=== PATIENT | female | born 1930 | race Caucasian/White ===

== ENCOUNTER 2016-09-02 11:57 | Inpatient (IN) | payer OTHER ==
[~2016-09-02] VITALS: Ht 152.4 cm; Wt 89.4 kg
[~2016-09-02 11:57] MED LIST: ACET650T92 PO; AMLO5TAB2 PO; ASPCH81X PO; CHOL1TAB46 PO; CLOP1TAB5 PO; DTR5 PO; FLNIN NAE; ISOS60TA PO; ISR/5 PO; LOSA1TAB38 PO; LPR50X PO; LPT/40 PO; MECL1TAB42 PO; NITR0.4S UT; PANT1TAB48 PO; SENNTAB23 PO
[2016-09-02] MEDS ORDERED: SODIUM CHLORIDE 0.9% 1000ML 1,000 ML IV SCH (12:33)
--- NOTE | 2016-09-02 12:55 | DIAGNOSTIC IMAGING REPORT ---
HEAD CT NONCONTRAST CT DOSE: 700.35 mGycm HISTORY: Stroke symptoms. Arm and leg heaviness. TECHNIQUE: Multiaxial CT images of the head were performed without the use of intravenous contrast. Automated exposure control was utilized for this study. Comparison: Head CT 05/11/2015. Findings: The paranasal sinuses and mastoid air cells are clear. The calvarium and skull base are intact. There is no mass, hematoma, midline shift, acute infarct. White matter hypodensity is nonspecific but suggestive of microvascular ischemic change. The ventricles and sulci demonstrate mild age-related involutional changes. 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 Impression: No significant change compared to the prior study. No acute intracranial abnormality. Electronically signed by: Jersey Douglas M.D. 09/02/2016 12:54 PM Dictated Date/Time: 09/02/2016 12:49 PM
[2016-09-02] MEDS ORDERED: HydrALAZINE HCL 20 MG/ML VIAL IV. STA (13:34)
[2016-09-02 14:06] LABS: BASO % 0.4 %; BASO ABS # 0.03 K/uL (0-0.2); COMPLETE YES; EOS % 2.3 %; HEMATOCRIT 35.4 % (37-47); IG% 0.7 %; LYMPH % 21.8 %; LYMPH ABS # 1.63 K/uL (1.2-3.4); MEAN CELL VOLUME 95.7 fL (80-100); MEAN CORPUSCULAR HEMOGLOBIN 31.1 pg (25-34); MEAN CORPUSCULAR HGB CONC 32.5 g/dl (32-36); MEAN PLATELET VOLUME 11.2 fL (7.4-10.4); NEUT % 65.8 %; PLATELET COUNT 186 K/uL (130-400); WHITE BLOOD COUNT 7.46 K/uL (4.8-10.8)
[2016-09-02 14:24] LABS: BUN/CREATININE RATIO 19.6 (10-20); CALCIUM 9.5 mg/dl (8.5-10.1); POTASSIUM 4.4 mmol/L (3.5-5.1)
[2016-09-02 14:27] LABS: INR 1.1 (0.9-1.1); PARTIAL THROMBOPLASTIN RATIO 0.9; PROTHROMBIN TIME (PATIENT) 11.4 SECONDS (9.0-12.0)
[2016-09-02 14:32] LABS: CKMB/CK RATIO 2.1 (0-3.0)
[2016-09-02] MEDS ORDERED: ISOS30TA35 PO (15:38)
[2016-09-02] MEDS ORDERED: ISOS60TA25 PO (15:38)
[2016-09-02] MEDS ORDERED: LOSA1TAB38 PO (15:38)
[2016-09-02] MEDS ORDERED: JNV25 PO (15:38)
[2016-09-02] MEDS ORDERED: ONDANSETRON INJ 2 MG/ML 2 ML VIAL IV PRN (15:45)
[2016-09-02] MEDS ORDERED: PHARMACIST DISCHARGE MED REC CONSULT PRN (15:45)
[2016-09-02] MEDS ORDERED: ACETAMINOPHEN 325 MG TAB PO PRN (15:45)
[2016-09-02] MEDS ORDERED: FERR1TAB13 PO (15:55)
[2016-09-02] MEDS ORDERED: CYAN10004 PO (15:55)
[2016-09-02] MEDS ORDERED: PANT1TAB48 PO (15:55)
[2016-09-02] MEDS ORDERED: AMLO-114 PO (15:55)
[2016-09-02] MEDS ORDERED: DOCU100C22 PO (15:55)
[2016-09-02] MEDS ORDERED: GLUCOSE 10 TABS/TUBE PO PRN (16:00)
[2016-09-02] MEDS ORDERED: GLUCOSE 40% GEL 15 GM TUBE PO PRN (16:00)
[2016-09-02] MEDS ORDERED: GLUCAGON FOR INJ 1 MG VIAL SQ PRN (16:00)
[2016-09-02] MEDS ORDERED: DEXTROSE 50% 50 ML SYR IV PRN (16:00)
[2016-09-02 16:48] VITALS: BP 116/84; PULSE 56; TEMP 36.7; O2SAT 96; Ht 152.4 cm; Wt 89.4 kg
--- NOTE | 2016-09-02 17:29 | DIAGNOSTIC IMAGING REPORT ---
Brain MRA HISTORY: Mental status change Stroke - Attention to [place] TECHNIQUE: 3-D [id number] MRA of the brain was performed without contrast. COMPARISON STUDY: None. FINDINGS: High-grade stenosis distal left vertebral artery. Right vertebral artery is dominant with the basilar unremarkable. Moderate multifocal narrowing of the right middle cerebral arterial distribution. Left middle cerebral distribution appears unremarkable. Anterior cerebral vessels show mild scattered atherosclerotic change. IMPRESSION: 1.. High-grade stenosis distal left vertebral vessel. 2. Moderate multifocal narrowing right middle cerebral vessel. 3. Mild atherosclerotic change anterior cerebral circulation. Electronically signed by: Silver Zuluaga M.D. 09/02/2016 5:27 PM Dictated Date/Time: 09/02/2016 5:24 PM
--- NOTE | 2016-09-02 17:36 | DIAGNOSTIC IMAGING REPORT ---
Brain MRI WITHOUT CONTRAST HISTORY: Mental status change Stroke TECHNIQUE: Multiplanar multisequence MRI of the brain was performed without the use of contrast. COMPARISON STUDY: None. FINDINGS: 3 small foci of acute punctate ischemic change right parietal convexity. No additional foci of acute ischemic change are present. Mild to moderate chronic small vessel change of the periventricular deep white matter regions. Mild age-related atrophy. No deviation of midline structures. IMPRESSION: 1. Several small punctate foci of acute ischemic change right superior parietal convexity. 2. Chronic age-related change. 3. Mild atrophy Electronically signed by: Silver Zuluaga M.D. 09/02/2016 5:35 PM Dictated Date/Time: 09/02/2016 5:32 PM
--- NOTE | 2016-09-02 17:55 | DIAGNOSTIC IMAGING REPORT ---
MRA OF THE NECK WITHOUT CONTRAST CLINICAL HISTORY: CVA mental status change COMPARISON STUDY: None. TECHNIQUE: A 1.5 Tammi magnet was utilized. 2-D and 3-D [id number] imaging was performed to obtain unenhanced MRA of the neck. NASCET criteria were utilized to estimate the degree of carotid stenosis. FINDINGS: The right vertebral artery and basilar appear unremarkable. High-grade stenosis distal left vertebral artery. Moderate multifocal areas of narrowing of the course of the remainder of the left vertebral vessel. Evaluation of the carotid systems is problematic due to patient respiratory and somatic motion. Possible moderate atherosclerotic change carotid bifurcations and proximal internal carotid arteries. This region is not seen diagnostically. IMPRESSION: 1. Near nondiagnostic study. 2. High-grade stenosis distal left vertebral artery with multifocal areas of significant stenosis in a more proximal location. 3. Very limited evaluation of the carotid bifurcations due to patient respiratory and somatic motion. Possible moderate to rather significant narrowing of the internal carotid arteries bilaterally versus artifact. 4. A carotid Doppler ultrasound may be of further assistance to evaluate these findings. Electronically signed by: Silver Zuluaga M.D. 09/02/2016 5:54 PM Dictated Date/Time: 09/02/2016 5:50 PM
[2016-09-02 18:09] VITALS: BP 180/92; PULSE 55; TEMP 36.5; O2SAT 94
--- NOTE | 2016-09-02 18:16 | History and Physical ---
History & Physical Date & Time of Service: Sep 02, 2016 ~ 15:30 Chief Complaint: Left Arm and Leg Weakness Primary Care Physician: Joce Dutta M.D. History of Present Illness 85 year old female who presents to the ER with left arm weakness and heaviness. Patient reports she woke up around 0500 this morning and her left arm was heavy and numb and he was unable to move it. She then got up to go to the bathroom and reports her left leg was dragging however she was able to walk. Patient then went back to bed and woke up around 930 and her symptoms persisted. She then presented to the ER for further evaluation. She reports her symptoms are improving. She feels as though her functions has returned about 80%. She denies headache, blurred vision, lightheadedness, dizziness, or syncope. She reports she otherwise has been feeling well recently. No chest pain or shortness of breath. She denies abdominal pain, nausea, vomiting, or diarrhea. No fever or chills. She denies urinary symptoms. In the ER, head CT is negative. BP was elevated at 190/81. She received IV hydralazine and BP has improved. Trop 0.075 , EKG does not show any acute ST changes. Past Medical/Surgical History Medical Problems: (1) CAD (coronary artery disease) Permanent Comment: 2002 - PTCA to LAD, cx, and RCA 2006 - cath demonstrated patent stents and branch vessel disease, medical management recommended Status: Chronic (2) CKD (chronic kidney disease), stage IV Status: Chronic (3) DM type 2 (diabetes mellitus, type 2) Status: Chronic (4) Dyslipidemia Status: Chronic (5) HTN (hypertension) Status: Chronic (6) Osteoarthritis Status: Chronic Surgical Problems: (1) H/O dilation and curettage Status: Chronic (2) H/O oophorectomy Status: Chronic (3) History of appendectomy Status: Chronic (4) History of cataract surgery Status: Chronic (5) S/P cholecystectomy Status: Chronic Family History non contributory due to patient's advanced age Social History Smoking Status: Former Smoker Alcohol Use: none Immunizations History of Influenza Vaccine: Yes Influenza Vaccine Date: Feb 12, 2016 History of Tetanus Vaccine?: Yes Tetanus Immunization Date: Mar 23, 2011 History of Pneumococcal: Yes Pneumococcal Date: Apr 13, 2015 Multi-Drug Resistant Organisms History of MDRO: No Allergies Coded Allergies: GAYATHRI Inhibitors (Unverified Allergy, Unknown, SWELLING, 09/02/16) Sulfa Antibiotics (Verified Allergy, Unknown, UNKNOWN, 09/02/16) Home Medications Scheduled Amlodipine (Norvasc), 10 MG PO DAILY Aspirin (Aspirin Chewable), 81 MG PO DAILY Atorvastatin (Lipitor), 40 MG PO HS Cholecalciferol (Vitamin D3), 5,000 UNIT(INT) PO HS Clopidogrel Bisulfate (Plavix), 75 MG PO DAILY Cyanocobalamin (Vitamin B-12 1000 Mcg), 1 TAB PO DAILY Docusate Sodium (Docqlace), 2 CAP PO HS Ferrous Sulfate (Kp Ferrous Sulfate), 1 TAB PO BID Isosorbide Mononitrate Ext Rel (Imdur Ext Rel), 1 TAB PO QAM Isosorbide Mononitrate Ext Rel (Imdur Ext Rel), 1 TAB PO QAM Losartan Potassium (Cozaar), 100 MG PO DAILY Meclizine Hcl (Meclizine Hcl), 25 MG PO TID PRN Metoprolol Tartrate (Metoprolol Tartrate), 50 MG PO BID Nitroglycerin (Nitrostat), 0.4 MG UT PRN Oxybutynin Chloride (Oxybutynin Chloride), 5 MG PO BID Pantoprazole (Protonix), 40 MG PO BID Sitagliptin (Januvia), 1 TAB PO DAILY Review of Systems ROS per HPI, all other systems reviewed and negative Physical Exam Vital Signs Date Time Temp Pulse Resp B/P (MAP) Pulse Ox O2 Delivery O2 Flow Rate FiO2 09/02/16 16:48 36.7 56 20 116/84 96 Room Air 09/02/16 16:46 56 20 116/84 96 Room Air 09/02/16 14:15 58 20 164/83 98 09/02/16 14:00 46 16 183/87 95 Room Air 09/02/16 13:25 51 20 183/79 96 Room Air 09/02/16 12:24 98 Room Air 09/02/16 12:22 36.7 71 20 190/81 98 Room Air 09/02/16 12:15 52 General Appearance: no apparent distress Head: normocephalic Eyes: normal inspection, PERRL ENT: hearing grossly normal Neck: supple, no JVD Respiratory/Chest: lungs clear, normal breath sounds, no respiratory distress Cardiovascular: regular rate, rhythm, normal peripheral pulses, + pertinent finding (teace edema BLLE) Abdomen/GI: normal bowel sounds, non tender, soft Extremities/Musculoskelatal: normal inspection, no calf tenderness Neurologic/Psych: alert, normal mood/affect, oriented x 3, + pertinent finding (decreased sensation to LUE and LLE; LUE 4/5, RUE 4/5, LLE 4/5, RLE 5/5; no other focal deficits noted) Skin: normal color, warm/dry Diagnostics Laboratory Results Results Past 24 Hours Test 09/02/16 12:54 09/02/16 12:59 09/02/16 13:30 Range/Units Bedside Glucose 134 70-90 mg/dl Bedside Prothrombin Time INR 1.2 0.9-1.1 White Blood Count 7.46 4.8-10.8 K/uL Red Blood Count 3.70 4.2-5.4 M/uL Hemoglobin 11.5 12.0-16.0 g/dL Hematocrit 35.4 37-47 % Mean Corpuscular Volume 95.7 80-100 fL Mean Corpuscular Hemoglobin 31.1 25-34 pg Mean Corpuscular Hemoglobin Concent 32.5 32-36 g/dl Platelet Count 186 130-400 K/uL Mean Platelet Volume 11.2 7.4-10.4 fL Neutrophils (%) (Auto) 65.8 % Lymphocytes (%) (Auto) 21.8 % Monocytes (%) (Auto) 9.0 % Eosinophils (%) (Auto) 2.3 % Basophils (%) (Auto) 0.4 % Neutrophils # (Auto) 4.91 1.4-6.5 K/uL Lymphocytes # (Auto) 1.63 1.2-3.4 K/uL Monocytes # (Auto) 0.67 0.11-0.59 K/uL Eosinophils # (Auto) 0.17 0-0.5 K/uL Basophils # (Auto) 0.03 0-0.2 K/uL RDW Standard Deviation 47.1 36.4-46.3 fL RDW Coefficient of Variation 13.5 11.5-14.5 % Immature Granulocyte % (Auto) 0.7 % Immature Granulocyte # (Auto) 0.05 0.00-0.02 K/uL Prothrombin Time 11.4 9.0-12.0 SECONDS Prothromb Time International Ratio 1.1 0.9-1.1 Activated Partial Thromboplast Time 23.9 21.0-31.0 SECONDS Partial Thromboplastin Ratio 0.9 Sodium Level 144 136-145 mmol/L Potassium Level 4.4 3.5-5.1 mmol/L Chloride Level 111 98-107 mmol/L Carbon Dioxide Level 23 21-32 mmol/L Anion Gap 10.0 3-11 mmol/L Blood Urea Nitrogen 39 7-18 mg/dl Creatinine 2.00 0.60-1.20 mg/dl Est Creatinine Clear Calc Drug Dose 20.0 ml/min Estimated GFR () 25.6 Estimated GFR (Non- 22.0 BUN/Creatinine Ratio 19.6 10-20 Random Glucose 136 70-99 mg/dl Calcium Level 9.5 8.5-10.1 mg/dl Total Creatine Kinase 77 26-192 U/L Creatine Kinase MB 1.6 0.5-3.6 ng/ml Creatine Kinase MB Ratio 2.1 0-3.0 Troponin I 0.075 0-0.045 ng/ml Diagnostic Radiology Head CT Impression: No significant change compared to the prior study. No acute intracranial abnormality. Impression Assessment and Plan LEFT SIDED WEAKNESS - admit to tele - patient presenting with left arm and left leg weakness that was present when she woke up this morning; symptoms currently improving - head CT negative - brain MRI/MRA, neck MRA, echo - neuro checks - patient already on ASA and Plavix due to CAD - if imaging positive for CVA, will need to consider changing to Aggrenox - on atorvastatin 40mg - will increase to 80mg - neuro consult, input appreciated HYPERTENSIVE URGENCY - BP on arrival 190/81 - s/p IV hydralazine with improvement - continue metoprolol, isosorbide, losartan, and amlodipine - would allow for permissive HTN due to possible CVA ELEVATED TROPONIN, HX CAD - suspect troponin elevation due to HTN - no reports of chest pain, EKG without acute ST changes - continue to cycle cardiac enzymes, check resting echo - continue ASA, Plavix, beta margaret, statin, nitrate DM - hgb a1c 5.9 08/2016 - hold oral agents and utilize SSI while hospitalized DVT PROPHYLAXIS - SCDs until MRI resulted CODE STATUS - Patient is a DNR as per my discussion with her. DISPO - In my clinical judgment this beneficiary meets acute admission criteria, established by [facility], that includes being hospitalized through two midnights. Advanced Directives Existing Living Will: Yes Existing Power of Staff Mechanical Engineer: Yes VTE Prophylaxis VTE Risk Assessment Done? Y/N: Yes Risk Level: Moderate
[2016-09-02 18:50] VITALS: BP 165/75
[2016-09-02] MEDS: PANTOprazole SOD 40 MG TAB PO SCH (20:14)
[2016-09-02] MEDS: ATORVASTATIN 40 MG TAB PO SCH (20:14)
[2016-09-02] MEDS: OXYBUTYNIN CHLORIDE 5 MG TAB PO SCH (20:16)
[2016-09-02] MEDS: DOCUSATE SODIUM 100 MG CAP PO SCH (20:16)
[2016-09-02] MEDS: INSULIN ASPART 100 UNITS/ML 3 ML PEN SC SCH (20:18)
[2016-09-02] MEDS: METOPROLOL TARTRATE 50 MG TAB PO SCH (20:18)
[2016-09-02] MEDS: FERROUS SULFATE 325 MG TAB PO SCH (20:18)
--- NOTE | 2016-09-02 20:24 | EMERGENCY ROOM VISIT NOTE ---
History Report prepared by Aubree: Zackary Renteria Under the Supervision of: Dr. Kd Mabry M.D. First contact with patient: 12:28 Chief Complaint: STROKE SYMPTOMS Stated Complaint: ARM & LEG HEAVINESS Nursing Triage Summary: pt presented to hospital by ALS pt has cardiac hx with 3 stents pt reports going to bed at 0130 "feeling ok, but having chills" pt awoke at 0500 to void and felt heaviness in left arm and shoulder pt was able to move on, out of bed to void and felt heaviness in left leg pt returned to bed and awoke at 0930 with numbness in left arm and left leg difficulty pt has full movement of all extremities History of Present Illness The patient is an 85 year old female who presents to the Emergency Room via ambulance with complaints of intermittent left arm numbness and heaviness upon waking at 0500 this morning. She states that she woke up around 0500 to void when the symptoms came on. The patient says that she was able to get out of bed and void, but she also started to feel heaviness in her left leg. She notes that she returned to bed and awoke around 0930 with the same numbness and heaviness. The patient was then brought here via ambulance around 1030, and in the ambulance she says that heaviness and numbness faded a bit. However, she says that the heaviness and tingling has come back here, but not as strong as it was earlier this morning. She was not given anything in the ambulance. The patient states that her right arm and right leg have felt normal. She has no history of TIA, and has never experienced anything like this before. The patient says that she is being treated by her primary care physician for hypertension, and she took her medications this morning. The patient takes Plavix and baby aspirin. She is diabetic, and has a heart disease history with 3 stents placed. Pt denies LOC, headache, fevers, current chills, diaphoresis, visual changes, neck pain, chest pain, breathing difficulties, nausea, vomiting , abdominal pain, back pain, melena, hematochezia, urinary symptoms, weakness, lymphadenopathy, rash, or other complaints. Source of History: patient, nursing staff Onset: 0500 this morning Position: arm (left) Quality: tingling, numbness, other (heaviness) Timing: intermittent Note: Associated symptoms: Left leg numbness, tingling, heaviness. Review of Systems See HPI for pertinent positives and negatives. A total of ten systems were reviewed and were otherwise negative. Past Medical & Surgical Medical Problems: (1) CAD (coronary artery disease) (2) CKD (chronic kidney disease), stage IV (3) DM type 2 (diabetes mellitus, type 2) (4) Dyslipidemia (5) HTN (hypertension) (6) Osteoarthritis Surgical Problems: (1) H/O dilation and curettage (2) H/O oophorectomy (3) History of appendectomy (4) History of cataract surgery (5) S/P cholecystectomy Family History Cancer Social History Smoking Status: Former Smoker Alcohol Use: none Drug Use: none Marital Status: Housing Status: lives with significant other Occupation Status: retired Current/Historical Medications Scheduled Amlodipine (Norvasc), 10 MG PO DAILY Aspirin (Aspirin Chewable), 81 MG PO DAILY Atorvastatin (Lipitor), 40 MG PO HS Cholecalciferol (Vitamin D3), 5,000 UNIT(INT) PO HS Clopidogrel Bisulfate (Plavix), 75 MG PO DAILY Cyanocobalamin (Vitamin B-12 1000 Mcg), 1 TAB PO DAILY Docusate Sodium (Docqlace), 2 CAP PO HS Ferrous Sulfate (Kp Ferrous Sulfate), 1 TAB PO BID Isosorbide Mononitrate Ext Rel (Imdur Ext Rel), 1 TAB PO QAM Isosorbide Mononitrate Ext Rel (Imdur Ext Rel), 1 TAB PO QAM Losartan Potassium (Cozaar), 100 MG PO DAILY Meclizine Hcl (Meclizine Hcl), 25 MG PO TID PRN Metoprolol Tartrate (Metoprolol Tartrate), 50 MG PO BID Nitroglycerin (Nitrostat), 0.4 MG UT PRN Oxybutynin Chloride (Oxybutynin Chloride), 5 MG PO BID Pantoprazole (Protonix), 40 MG PO BID Sitagliptin (Januvia), 1 TAB PO DAILY Allergies Coded Allergies: GAYATHRI Inhibitors (Unverified Allergy, Unknown, SWELLING, 09/02/16) Sulfa Antibiotics (Verified Allergy, Unknown, UNKNOWN, 09/02/16) Physical Exam Vital Signs Date Time Temp Pulse Resp B/P (MAP) Pulse Ox O2 Delivery O2 Flow Rate FiO2 09/02/16 14:15 58 20 164/83 98 09/02/16 14:00 46 16 183/87 95 Room Air 09/02/16 13:25 51 20 183/79 96 Room Air 09/02/16 12:24 98 Room Air 09/02/16 12:22 36.7 71 20 190/81 98 Room Air 09/02/16 12:15 52 Physical Exam GENERAL: Awake, alert, well appearing, no distress HENT: Normocephalic, atraumatic. TM's normal. Oropharynx unremarkable. EYES: PERRL. EOMI. Normal conjunctiva. Sclera non-icteric. NECK: Supple. No nuchal rigidity. FROM. No JVD or bruit. RESPIRATORY: CTA CARDIAC: Bradycardic heart rate. No murmur. ABDOMEN: Soft, non distended. No tenderness to palpation. No rebound or guarding. No masses. RECTAL: Deferred. MUSCULOSKELETAL: Unremarkable. No edema. No discoloration. Gross motor strength symmetric. NEURO: Cranial nerves 2-12 grossly intact. Normal sensorium. No sensory or motor deficits noted. Speech normal. No pronator drift. SKIN: No rash or jaundice noted. LYMPH: No adenopathy. Medical Decision & Procedures ER Provider Diagnostic Interpretation: CT: Radiology results as stated below per my review and radiologist interpretation HEAD CT NONCONTRAST CT DOSE: 700.35 mGycm HISTORY: Stroke symptoms. Arm and leg heaviness. TECHNIQUE: Multiaxial CT images of the head were performed without the use of intravenous contrast. Automated exposure control was utilized for this study. Comparison: Head CT 05/11/2015. Findings: The paranasal sinuses and mastoid air cells are clear. The calvarium and skull base are intact. There is no mass, hematoma, midline shift, acute infarct. White matter hypodensity is nonspecific but suggestive of microvascular ischemic change. The ventricles and sulci demonstrate mild age-related involutional changes. 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 Impression: No significant change compared to the prior study. No acute intracranial abnormality. Electronically signed by: Jersey Douglas M.D. 09/02/2016 12:54 PM Dictated Date/Time: 09/02/2016 12:49 PM Laboratory Results 09/02/16 13:30 Red Blood Count 3.70, Mean Corpuscular Volume 95.7, Mean Corpuscular Hemoglobin 31.1, Mean Corpuscular Hemoglobin Concent 32.5, Mean Platelet Volume 11.2, Neutrophils (%) (Auto) 65.8, Lymphocytes (%) (Auto) 21.8, Monocytes (%) (Auto) 9.0, Eosinophils (%) (Auto) 2.3, Basophils (%) (Auto) 0.4, Neutrophils # (Auto) 4.91, Lymphocytes # (Auto) 1.63, Monocytes # (Auto) 0.67, Eosinophils # (Auto) 0.17, Basophils # (Auto) 0.03 09/02/16 13:30 Test 09/02/16 12:59 09/02/16 13:30 Bedside Prothrombin Time INR 1.2 (0.9-1.1) White Blood Count 7.46 K/uL (4.8-10.8) Red Blood Count 3.70 M/uL (4.2-5.4) Hemoglobin 11.5 g/dL (12.0-16.0) Hematocrit 35.4 % (37-47) Mean Corpuscular Volume 95.7 fL (80-100) Mean Corpuscular Hemoglobin 31.1 pg (25-34) Mean Corpuscular Hemoglobin Concent 32.5 g/dl (32-36) Platelet Count 186 K/uL (130-400) Mean Platelet Volume 11.2 fL (7.4-10.4) Neutrophils (%) (Auto) 65.8 % Lymphocytes (%) (Auto) 21.8 % Monocytes (%) (Auto) 9.0 % Eosinophils (%) (Auto) 2.3 % Basophils (%) (Auto) 0.4 % Neutrophils # (Auto) 4.91 K/uL (1.4-6.5) Lymphocytes # (Auto) 1.63 K/uL (1.2-3.4) Monocytes # (Auto) 0.67 K/uL (0.11-0.59) Eosinophils # (Auto) 0.17 K/uL (0-0.5) Basophils # (Auto) 0.03 K/uL (0-0.2) RDW Standard Deviation 47.1 fL (36.4-46.3) RDW Coefficient of Variation 13.5 % (11.5-14.5) Immature Granulocyte % (Auto) 0.7 % Immature Granulocyte # (Auto) 0.05 K/uL (0.00-0.02) Prothrombin Time 11.4 SECONDS (9.0-12.0) Prothromb Time International Ratio 1.1 (0.9-1.1) Activated Partial Thromboplast Time 23.9 SECONDS (21.0-31.0) Partial Thromboplastin Ratio 0.9 Anion Gap 10.0 mmol/L (3-11) Est Creatinine Clear Calc Drug Dose 20.0 ml/min Estimated GFR () 25.6 Estimated GFR (Non- 22.0 BUN/Creatinine Ratio 19.6 (10-20) Calcium Level 9.5 mg/dl (8.5-10.1) Total Creatine Kinase 77 U/L (26-192) Laboratory results reviewed by me Medications Administered Medications (Trade) Dose Ordered Sig/Caty Route Start Time Stop Time Status Last Admin Dose Admin Sodium Chloride 1,000 ml @ 50 mls/hr Q20H IV 09/02/16 12:33 09/02/16 19:03 DC 09/02/16 13:24 50 MLS/HR Hydralazine HCl (HydrALAZINE INJ) 5 mg NOW STAT IV. 09/02/16 13:34 09/02/16 13:36 DC 09/02/16 14:07 5 MG ECG Indication: other (stroke symptoms) Rate (beats per minute): 51 Rhythm: sinus bradycardia Findings: no acute ischemic change, left axis deviation, other (RBBB, LVH) ED Course 1229: The patient was evaluated in room C4. A complete history and physical exam was performed. 1233: Ordered NSS 1000 ml @ 50 mls/hr IV. 1320: I discussed the patient with Dr. Loraine Carrero Neurology - he recommends a stroke workup and no TPA. 1334: Ordered Hydralazine Inj 5 mg IV. 1343: I reevaluated and updated the patient. 1500: Upon reexamination, the patient was resting comfortably. I discussed the test results and treatment plan with her. She expressed understanding and agreement with the treatment plan. The patient will be evaluated for further management. 1502: I discussed the patient with Analy Nguyen - she will evaluate the patient for further treatment. Medical Decision Medication Reconciliation: I attest that I have personally reviewed the patient' s current medication list Blood pressure screening: Patient was found to have an elevated blood pressure and was referred to their primary doctor for recheck and further treatment. Triage Nursing notes reviewed. The patient's presentation and history were concerning for left-sided numbness. Etiologies such as TIA, CVA, metabolic, infection, hypo/hyperglycemia, electrolyte abnormalities, cardiac sources, intracerebral event, toxicologic, neurologic, as well as others were entertained. The patient was evaluated. She was moderately hypertensive. Stroke scale was essentially 0. She was sent for urgent CT imaging. This was negative for any acute disease. Old lacunar infarcts noted. The patient had a consultation placed with stroke neurology at [facility]. It was felt that conservative management was most appropriate given the duration of symptoms and the patient' s age. The patient's blood work revealed unremarkable CBC. She had a mild elevation of creatinine but this was stable. Troponin was mildly elevated although this is difficult to interpret in light of her abnormal creatinine. ECG did not reveal any evidence of dysrhythmia. The patient was hydrated. Consultation was made with internal medicine. The patient was evaluated in the Emergency Room for further management. Consults Time Called: 1314 Consulting Physician: Dr. Loraine Carrero neurology Returned Call: 1320 I discussed the patient with Dr. Loraine Carrero Neurology - he recommends a stroke workup and no TPA. Additional Consults: Time Called: 1500 Consulted Physician: Analy Nguyen Returned Call: 1502 Additional Comments: I discussed the patient with Analy Nguyen - she will evaluate the patient for further treatment. Impression Primary Impression: Numbness on left side Additional Impressions: Elevated troponin Hypertension Scribe Attestation The scribe's documentation has been prepared under my direction and personally reviewed by me in its entirety. I confirm that the note above accurately reflects all work, treatment, procedures, and medical decision making performed by me. Departure Information Dispostion Being Evaluated By Hospitalist Prescriptions Pantoprazole (PROTONIX) 40 Mg Tab 40 MG PO BID for 30 Days Prov: Analy Wood .JULIO 09/02/16 Referrals Joce Dutta M.D. (PCP) Patient Instructions My [facility] Problem Qualifiers
[2016-09-02] MEDS ORDERED: ATORVASTATIN 20 MG TAB PO SCH (21:00)
--- NOTE | 2016-09-02 22:01 | DIAGNOSTIC IMAGING REPORT ---
BILATERAL CAROTID DOPPLER STUDY HISTORY: Mental status change CVA COMPARISON: None. TECHNIQUE: Real-time, grayscale, and color Doppler sonography of the carotid arteries was performed. Imaging reviewed in the transverse and longitudinal planes. All measurements were calculated based on NASCET criteria. FINDINGS: Antegrade flow is seen in the bilateral vertebral arteries. The brachial pressures are hemodynamically similar. Moderate plaque formation bilaterally The peak systolic velocity within the right ICA is 77. The right systolic ratio is 0.79. The peak systolic velocity within the left ICA is 132. The left systolic ratio is 3.14. IMPRESSION: 1. Moderate plaque formation bilaterally. 2. 30-40% narrowing left internal carotid artery. 4. No evidence for high-grade stenotic process. Electronically signed by: Silver Zuluaga M.D. 09/02/2016 9:59 PM Dictated Date/Time: 09/02/2016 9:58 PM
[2016-09-02 23:00] VITALS: BP 184/69; PULSE 48; TEMP 36.8; O2SAT 95
[2016-09-02] MEDS: HydrALAZINE HCL 20 MG/ML VIAL IV. PRN (23:09)
[2016-09-03] VITALS (8 sets, daily range): BP systolic 120–182; BP diastolic 60–79; PULSE 54–78; TEMP 36.7–37; O2SAT 91–96
[2016-09-03 04:32] LABS: BASO % 0.1 %; BASO ABS # 0.01 K/uL (0-0.2); COMPLETE YES; EOS % 2.2 %; HEMATOCRIT 33.5 % (37-47); IG% 0.4 %; LYMPH % 26.2 %; LYMPH ABS # 1.87 K/uL (1.2-3.4); MEAN CELL VOLUME 94.4 fL (80-100); MEAN CORPUSCULAR HEMOGLOBIN 30.7 pg (25-34); MEAN CORPUSCULAR HGB CONC 32.5 g/dl (32-36); MEAN PLATELET VOLUME 10.5 fL (7.4-10.4); MONO % 8.6 %; NEUT % 62.5 %; PLATELET COUNT 158 K/uL (130-400); RED BLOOD COUNT 3.55 M/uL (4.2-5.4); WHITE BLOOD COUNT 7.13 K/uL (4.8-10.8)
[2016-09-03 04:51] LABS: BUN/CREATININE RATIO 17.8 (10-20); CALCIUM 9.1 mg/dl (8.5-10.1); CREATININE 2.3 mg/dl (0.60-1.20); MAGNESIUM 1.9 mg/dl (1.8-2.4)
[2016-09-03 05:02] LABS: CHOLESTEROL/HDL RATIO 4.2; THYROID STIMULATING HORMONE 0.577 uIu/ml (0.300-4.500)
[2016-09-03 06:53] LABS: ESTIMATED AVERAGE GLUCOSE 140 mg/dl; HA1C FLAG Normal (Normal)
--- NOTE | 2016-09-03 08:33 | Progress Note ---
Internal Med Progress Note Date of Service: Sep 03, 2016. Provider Documentation: SUBJECTIVE: left arm heaviness , numbness almost resolved finished breakfast , no dysphagia, no problem using utensils stood up , ambulated independently in room , has mild numbness on left leg - mentions its been chronic yesterday -she was dragging her left foot , which has resolved as well denies of feeling dizzy or lightheaded no complain of chest pain or SOB , no palpitation last night pt had episodes of SVT -does not remember having any symptoms at present remains bradycardic HR 60's in tele OBJECTIVE: Vital Signs-as noted below Exam: General-vert pleasant elderly female, no sign of distress, conversing Eyes-sclera non icteric, PERRLA ENT-NAd Neck-no JVD noted Lungs-CTA, no wheeze or rales Heart-regular Abdomen-S1/S2 Extremities-no rash or deformity Neuro-AAO X3, no cr nv palsy , Muscle strength RUE 5/5 ; LUE 4/5 ; RLE 5/5 ; LLE 5/5 Lab data as noted below. ASSESSMENT & PLAN: ACUTE CVA /RT PARIETAL STOKE - patient presented with left arm and left leg weakness that was present as she woke up in morning symptoms currently almost resolved - head CT negative - brain MRI : 1. Several small punctate foci of acute ischemic change right superior parietal convexity. 2. Chronic age-related change. 3. Mild atrophy -MRA BRAIN : 1.. High-grade stenosis distal left vertebral vessel. 2. Moderate multifocal narrowing right middle cerebral vessel. 3. Mild atherosclerotic change anterior cerebral circulation. - - patient already been on ASA and Plavix due to CAD - on atorvastatin dose increased to 80mg for high intensity statin tx per guideline ( goal LDL < 70 ) - Neurology consult requested HIGH GRADE STENOSIS ON LEFT VERTEBRAL VESSEL : Noted in MRA of brain Carotid Doppler ( -more specific test ) IMPRESSION: 1. Moderate plaque formation bilaterally. 2. 30-40% narrowing left internal carotid artery. 4. No evidence for high-grade stenotic process. TACHYBRADY SYMPTOM : noted in Tele ; episodes of SVT HR on 119 at 3: 12 am -pt was asymptomatic later bradycardic HR In low 60's to 50 's AM dose of Lopressor not given due to bradycardia MRI of brain suggestive of possible embolic phenomenon has been of Aspirin /Plavix Cardiology consulted for evaluation HYPERTENSIVE URGENCY - BP on arrival was 190/81 - continue metoprolol, isosorbide, losartan, and amlodipine - would allow for permissive HTN due to possible CVA ELEVATED TROPONIN, HX CAD - suspect troponin elevation due to HTN - no reports of chest pain, EKG without acute ST changes - ordered for Resting ECHO to assess any new wall motion abnormality -Cardiology eval requested - continue ASA, Plavix, beta margaret, statin, nitrate DM - hgb a1c 5.9 08/2016 - hold oral agents and utilize SSI while hospitalized DVT PROPHYLAXIS - ordered for sub q heparin CODE STATUS - Patient is a DNR DISPOSITION PT/OT eval requested to assess gait instability was living at home prior , independent in ADL's Medicine follow up with Dr Pham Cardiology follow up with Dr Lambert Vital Signs: Date Time Temp Pulse Resp B/P (MAP) Pulse Ox O2 Delivery O2 Flow Rate FiO2 09/03/16 07:49 36.9 55 16 182/71 (108) 94 Room Air 09/03/16 04:00 Room Air 09/03/16 03:10 36.9 70 18 137/60 (85) 95 Room Air 09/03/16 00:21 166/69 (101) 09/03/16 00:01 Room Air 09/02/16 23:00 36.8 48 18 184/69 (107) 95 Room Air 09/02/16 20:00 Room Air 09/02/16 18:50 165/75 (105) 09/02/16 18:09 36.5 55 18 180/92 (121) 94 Room Air 09/02/16 16:48 36.7 56 20 116/84 96 Room Air 09/02/16 16:46 56 20 116/84 96 Room Air 09/02/16 14:15 58 20 164/83 98 09/02/16 14:00 46 16 183/87 95 Room Air 09/02/16 13:25 51 20 183/79 96 Room Air 09/02/16 12:24 98 Room Air 09/02/16 12:22 36.7 71 20 190/81 98 Room Air 09/02/16 12:15 52 Lab Results: Results Past 24 Hours Test 09/02/16 12:54 09/02/16 12:59 09/02/16 13:30 09/02/16 19:00 Range/Units Bedside Glucose 134 70-90 mg/dl Bedside Prothrombin Time INR 1.2 0.9-1.1 White Blood Count 7.46 4.8-10.8 K/uL Red Blood Count 3.70 4.2-5.4 M/uL Hemoglobin 11.5 12.0-16.0 g/dL Hematocrit 35.4 37-47 % Mean Corpuscular Volume 95.7 80-100 fL Mean Corpuscular Hemoglobin 31.1 25-34 pg Mean Corpuscular Hemoglobin Concent 32.5 32-36 g/dl Platelet Count 186 130-400 K/uL Mean Platelet Volume 11.2 7.4-10.4 fL Neutrophils (%) (Auto) 65.8 % Lymphocytes (%) (Auto) 21.8 % Monocytes (%) (Auto) 9.0 % Eosinophils (%) (Auto) 2.3 % Basophils (%) (Auto) 0.4 % Neutrophils # (Auto) 4.91 1.4-6.5 K/uL Lymphocytes # (Auto) 1.63 1.2-3.4 K/uL Monocytes # (Auto) 0.67 0.11-0.59 K/uL Eosinophils # (Auto) 0.17 0-0.5 K/uL Basophils # (Auto) 0.03 0-0.2 K/uL RDW Standard Deviation 47.1 36.4-46.3 fL RDW Coefficient of Variation 13.5 11.5-14.5 % Immature Granulocyte % (Auto) 0.7 % Immature Granulocyte # (Auto) 0.05 0.00-0.02 K/uL Prothrombin Time 11.4 9.0-12.0 SECONDS Prothromb Time International Ratio 1.1 0.9-1.1 Activated Partial Thromboplast Time 23.9 21.0-31.0 SECONDS Partial Thromboplastin Ratio 0.9 Sodium Level 144 136-145 mmol/L Potassium Level 4.4 3.5-5.1 mmol/L Chloride Level 111 98-107 mmol/L Carbon Dioxide Level 23 21-32 mmol/L Anion Gap 10.0 3-11 mmol/L Blood Urea Nitrogen 39 7-18 mg/dl Creatinine 2.00 0.60-1.20 mg/dl Est Creatinine Clear Calc Drug Dose 20.0 ml/min Estimated GFR () 25.6 Estimated GFR (Non- 22.0 BUN/Creatinine Ratio 19.6 10-20 Random Glucose 136 70-99 mg/dl Estimated Average Glucose 140 mg/dl Hemoglobin A1c 6.5 4.5-5.6 % Calcium Level 9.5 8.5-10.1 mg/dl Total Creatine Kinase 77 26-192 U/L Creatine Kinase MB 1.6 0.5-3.6 ng/ml Creatine Kinase MB Ratio 2.1 0-3.0 Troponin I 0.075 0-0.045 ng/ml Test 09/02/16 19:07 09/02/16 20:12 09/03/16 00:47 09/03/16 04:23 Range/Units Creatine Kinase MB 1.9 2.6 0.5-3.6 ng/ml Troponin I 0.067 0.073 0-0.045 ng/ml Bedside Glucose 103 70-90 mg/dl Creatine Kinase MB Ratio 0-3.0 White Blood Count 7.13 4.8-10.8 K/uL Red Blood Count 3.55 4.2-5.4 M/uL Hemoglobin 10.9 12.0-16.0 g/dL Hematocrit 33.5 37-47 % Mean Corpuscular Volume 94.4 80-100 fL Mean Corpuscular Hemoglobin 30.7 25-34 pg Mean Corpuscular Hemoglobin Concent 32.5 32-36 g/dl Platelet Count 158 130-400 K/uL Mean Platelet Volume 10.5 7.4-10.4 fL Neutrophils (%) (Auto) 62.5 % Lymphocytes (%) (Auto) 26.2 % Monocytes (%) (Auto) 8.6 % Eosinophils (%) (Auto) 2.2 % Basophils (%) (Auto) 0.1 % Neutrophils # (Auto) 4.45 1.4-6.5 K/uL Lymphocytes # (Auto) 1.87 1.2-3.4 K/uL Monocytes # (Auto) 0.61 0.11-0.59 K/uL Eosinophils # (Auto) 0.16 0-0.5 K/uL Basophils # (Auto) 0.01 0-0.2 K/uL RDW Standard Deviation 46.4 36.4-46.3 fL RDW Coefficient of Variation 13.4 11.5-14.5 % Immature Granulocyte % (Auto) 0.4 % Immature Granulocyte # (Auto) 0.03 0.00-0.02 K/uL Sodium Level 145 136-145 mmol/L Potassium Level 4.0 3.5-5.1 mmol/L Chloride Level 113 98-107 mmol/L Carbon Dioxide Level 25 21-32 mmol/L Anion Gap 7.0 3-11 mmol/L Blood Urea Nitrogen 41 7-18 mg/dl Creatinine 2.30 0.60-1.20 mg/dl Est Creatinine Clear Calc Drug Dose 17.4 ml/min Estimated GFR () 21.6 Estimated GFR (Non- 18.6 BUN/Creatinine Ratio 17.8 10-20 Random Glucose 103 70-99 mg/dl Calcium Level 9.1 8.5-10.1 mg/dl Magnesium Level 1.9 1.8-2.4 mg/dl Triglycerides Level 324 0-150 mg/dl Cholesterol Level 138 0-200 mg/dl HDL Cholesterol 33 mg/dl LDL Cholesterol, Calculated 40 mg/dl VLDL Cholesterol, Calculated 65 mg/dl Cholesterol/HDL Ratio 4.2 Thyroid Stimulating Hormone (TSH) 0.577 0.300-4.500 uIu/ml Test 09/03/16 06:57 Range/Units Bedside Glucose 108 70-90 mg/dl
[2016-09-03] MEDS: PANTOprazole SOD 40 MG TAB PO SCH ×2 (08:38→21:06)
[2016-09-03] MEDS: ASPIRIN 81 MG ECTAB PO SCH (08:39)
[2016-09-03] MEDS: OXYBUTYNIN CHLORIDE 5 MG TAB PO SCH ×2 (08:39→21:06)
[2016-09-03] MEDS: METOPROLOL TARTRATE 50 MG TAB PO SCH ×2 (08:40→21:06)
[2016-09-03] MEDS: LOSARTAN POTASSIUM 50 MG TAB PO SCH (08:40)
[2016-09-03] MEDS: CYANOCOBALAMIN 500 MCG TAB (VIT B-12) PO SCH (08:40)
[2016-09-03] MEDS: CLOPIDOGREL BISULFATE 75 MG TAB PO SCH (08:41)
[2016-09-03] MEDS: ISOSORBIDE MONONITRATE 30 MG TABCR PO SCH (08:41)
[2016-09-03] MEDS: AMLODIPINE BESYLATE 5 MG TAB PO SCH (08:41)
[2016-09-03] MEDS: INSULIN ASPART 100 UNITS/ML 3 ML PEN SC SCH ×4 (08:51→21:00)
[2016-09-03] MEDS: FERROUS SULFATE 325 MG TAB PO SCH ×3 (08:52→21:05)
[2016-09-03] MEDS ORDERED: ISOSORBIDE MONONITRATE 60 MG TABCR PO SCH (09:00)
[2016-09-03] MEDS ORDERED: ASPIRIN 81 MG ECTAB PO SCH (09:00)
--- NOTE | 2016-09-03 11:46 | Cardiology Consultation ---
Cardiology Consultation Date of Consultation: Sep 03, 2016 History of Present Illness Almas Dawn is a 85 year old female seen in cardiology consultation per the request of Dr. Coronado for evaluation of SVT. The patient presented to the emergency department yesterday 09/02/16 with complaint of left arm weakness and heaviness that was noted when she got up at 5 AM in the morning. She also noted difficulty with her left leg. Her symptoms persisted and she therefore came to the emergency department for evaluation. By the time she was admitted she felt that her function is improved by 80%. On admission her blood pressure is elevated at 190/81 and she had a mild elevation in her troponin without any significant repolarization changes on EKG. Imaging studies thus far have revealed several small punctate foci of acute ischemic changes in the right superior parietal region. MRA revealed high- grade stenosis within the distal left vertebral artery and a moderate multifocal narrowing of the right cerebral artery. Mild atherosclerotic changes are noted in the anterior cerebellar circulation. Carotid duplex revealed moderate carotid plaque without significant stenosis. Telemetry at present reveals sinus bradycardia at 55 bpm. She is sitting upright at the site for bed enjoying her lunch meal. She feels well and feels that her left arm and left leg weakness is mostly improved but she does note some residual weakness. Telemetry review reveals that on 09/03/16 at 3:12 AM there was a 4 beat run of narrow complex tachycardia 120 bpm that appeared to be consistent with supraventricular tachycardia with spontaneous offset back to sinus rhythm. No significant bradycardia below 50 bpm was noted per my review. The patient remains a symptomatically from an arrhythmia standpoint. The patient is well known to the undersigned with last outpatient visit with me on 04/04/16. At that time she was feeling well and she denied any chest discomfort or shortness of breath and had no recent anginal symptoms. She has a long-standing history of ischemic heart disease. Her 10 years ago she was found to have multivessel coronary artery disease and received pertains coronary intervention to the LAD, circumflex, and right coronary arteries. Her last coronary angiography was performed in 2006 which time her stents were patent with branch vessel disease noted for which ongoing medication therapy was recommended including amlodipine and isosorbide mononitrate. She had a non- ischemic response to pharmacologic nuclear stress testing in August 2015. Her baseline beta margaret doses of metoprolol tartrate 50 mg twice a day as per my last note. She has been on chronic dual antiplatelet therapy with aspirin 81 mg by mouth daily and clopidogrel 75 mg daily due to her multivessel CAD. Outpatient echocardiogram performed 09/09/15 at [facility] revealed normal left ventricular chamber size with mild concentric left ventricular hypertrophy. Resting wall motion was normal. Calculated left ventricular ejection fraction was 60%. Moderate left atrial dilatation was noted as well as borderline pulmonary hypertension with calculated pulmonary artery systolic pressure of 36 mmHg. Grade 1 diastolic dysfunction was noted. History Past Medical History: 1. Chronic coronary heart disease with drug-eluting stents to the LAD, circumflex, and right coronary arteries in January 2003 2. Carotid artery plaque without significant stenosis 3. Hypertension 4. Type 2 diabetes mellitus 5. Hypertension Past Surgical History: Cardiac catheterization 2002 in 2006 Remote appendectomy 1961 Remote cholecystectomy 1961 Social History: Patient is . She is a former smoker having quit in 1991 having smoked 0.75 packs per day for 45 years prior to that. Family History: Family history is notable for ischemic heart disease in her mother who at the age of 94. There is also family history of type 2 diabetes mellitus , renal cell carcinoma, rest cancer, colon cancer per her outpatient chart. Review Of Systems See above for pertinent positives & negatives. A total of 10 systems reviewed and were otherwise negative. Allergies Coded Allergies: GAYATHRI Inhibitors (Unverified Allergy, Unknown, SWELLING, 09/02/16) Sulfa Antibiotics (Verified Allergy, Unknown, UNKNOWN, 09/02/16) Medications Reported Home Medications Medications Dose Route/Sig Max Daily Dose Days Date Category Docqlace (Docusate Sodium) 100 Mg Cap 2 Cap PO HS 09/02/16 Reported Kp Ferrous Sulfate (Ferrous Sulfate) 325 Mg Tab 1 Tab PO BID 30 09/02/16 Reported Vitamin B-12 1000 Mcg (Cyanocobalamin) 1,000 Mcg Tab 1 Tab PO DAILY 30 09/02/16 Reported Norvasc (Amlodipine Besylate) 10 Mg Tab 10 Mg PO DAILY 09/02/16 Reported Protonix (Pantoprazole) 40 Mg Tab 40 Mg PO BID 30 09/02/16 Rx Januvia (Sitagliptin) 25 Mg Tab 1 Tab PO DAILY 09/02/16 Reported Cozaar (Losartan Potassium) 100 Mg Tab 100 Mg PO DAILY 09/02/16 Reported Imdur Ext Rel (Isosorbide Mononitrate) 60 Mg Ertab 1 Tab PO QAM 09/02/16 Reported Imdur Ext Rel (Isosorbide Mononitrate) 30 Mg Tabcr 1 Tab PO QAM 09/02/16 Reported Oxybutynin Chloride 5 Mg Tab 5 Mg PO BID 05/11/15 Reported Metoprolol Tartrate 50 Mg Tab 50 Mg PO BID 05/11/15 Reported Meclizine Hcl 25 Mg Tab 25 Mg PO TID PRN 05/08/12 Reported Vitamin D3 (Cholecalciferol) 5,000 Unit Tab 5,000 Unit(Int) PO HS 05/08/12 Reported Nitrostat (Nitroglycerin) 0.4 Mg Sub 0.4 Mg UT PRN 05/08/12 Reported Lipitor (Atorvastatin) 40 Mg Tab 40 Mg PO HS 05/08/12 Reported Aspirin Chewable (Aspirin) 81 Mg Chew 81 Mg PO DAILY 05/08/12 Reported Plavix (Clopidogrel Bisulfate) 75 Mg Tab 75 Mg PO DAILY 05/08/12 Reported Physical Exam Vital Signs (Last 8hrs): Last 8 Hrs Date Time Temp Pulse Resp B/P (MAP) Pulse Ox O2 Delivery O2 Flow Rate FiO2 09/03/16 08:50 78 09/03/16 07:49 36.9 55 16 182/71 (108) 94 Room Air 09/03/16 04:00 Room Air General Appearance: Alert and Oriented x3. NAD. Head: Normocephalic Atraumatic. Eyes: PERRLA, EOMI, conjunctiva and sclera clear Neck: Supple. No carotid bruits noted. No JVD. No HJD. Respiratory: Breath sounds clear to auscultation bilaterally. No w/r/r. Cardiovascular: Reg rate and rhythm. S1 and S2 noted. No murmurs, rubs, gallops. PMI non displace. Abdomen: Normal bowel sounds, soft nontender. no abdominal bruits. Extremities: No edema, no clubbing or cyanosis. distal pulses 2/4 bilaterally. Neuro: No focal deficits. Psychiatric: Normal affect. Data Last 24 Hours Test 09/02/16 12:54 09/02/16 12:59 09/02/16 13:30 09/02/16 19:00 Bedside Glucose 134 mg/dl Bedside Prothrombin Time INR 1.2 White Blood Count 7.46 K/uL Red Blood Count 3.70 M/uL Hemoglobin 11.5 g/dL Hematocrit 35.4 % Mean Corpuscular Volume 95.7 fL Mean Corpuscular Hemoglobin 31.1 pg Mean Corpuscular Hemoglobin Concent 32.5 g/dl Platelet Count 186 K/uL Mean Platelet Volume 11.2 fL Neutrophils (%) (Auto) 65.8 % Lymphocytes (%) (Auto) 21.8 % Monocytes (%) (Auto) 9.0 % Eosinophils (%) (Auto) 2.3 % Basophils (%) (Auto) 0.4 % Neutrophils # (Auto) 4.91 K/uL Lymphocytes # (Auto) 1.63 K/uL Monocytes # (Auto) 0.67 K/uL Eosinophils # (Auto) 0.17 K/uL Basophils # (Auto) 0.03 K/uL RDW Standard Deviation 47.1 fL RDW Coefficient of Variation 13.5 % Immature Granulocyte % (Auto) 0.7 % Immature Granulocyte # (Auto) 0.05 K/uL Prothrombin Time 11.4 SECONDS Prothromb Time International Ratio 1.1 Activated Partial Thromboplast Time 23.9 SECONDS Partial Thromboplastin Ratio 0.9 Sodium Level 144 mmol/L Potassium Level 4.4 mmol/L Chloride Level 111 mmol/L Carbon Dioxide Level 23 mmol/L Anion Gap 10.0 mmol/L Blood Urea Nitrogen 39 mg/dl Creatinine 2.00 mg/dl Est Creatinine Clear Calc Drug Dose 20.0 ml/min Estimated GFR () 25.6 Estimated GFR (Non- 22.0 BUN/Creatinine Ratio 19.6 Random Glucose 136 mg/dl Estimated Average Glucose 140 mg/dl Hemoglobin A1c 6.5 % Calcium Level 9.5 mg/dl Total Creatine Kinase 77 U/L Creatine Kinase MB 1.6 ng/ml Creatine Kinase MB Ratio 2.1 Troponin I 0.075 ng/ml Test 09/02/16 19:07 09/02/16 20:12 09/03/16 00:47 09/03/16 04:23 Creatine Kinase MB 1.9 ng/ml 2.6 ng/ml Troponin I 0.067 ng/ml 0.073 ng/ml Bedside Glucose 103 mg/dl Creatine Kinase MB Ratio White Blood Count 7.13 K/uL Red Blood Count 3.55 M/uL Hemoglobin 10.9 g/dL Hematocrit 33.5 % Mean Corpuscular Volume 94.4 fL Mean Corpuscular Hemoglobin 30.7 pg Mean Corpuscular Hemoglobin Concent 32.5 g/dl Platelet Count 158 K/uL Mean Platelet Volume 10.5 fL Neutrophils (%) (Auto) 62.5 % Lymphocytes (%) (Auto) 26.2 % Monocytes (%) (Auto) 8.6 % Eosinophils (%) (Auto) 2.2 % Basophils (%) (Auto) 0.1 % Neutrophils # (Auto) 4.45 K/uL Lymphocytes # (Auto) 1.87 K/uL Monocytes # (Auto) 0.61 K/uL Eosinophils # (Auto) 0.16 K/uL Basophils # (Auto) 0.01 K/uL RDW Standard Deviation 46.4 fL RDW Coefficient of Variation 13.4 % Immature Granulocyte % (Auto) 0.4 % Immature Granulocyte # (Auto) 0.03 K/uL Sodium Level 145 mmol/L Potassium Level 4.0 mmol/L Chloride Level 113 mmol/L Carbon Dioxide Level 25 mmol/L Anion Gap 7.0 mmol/L Blood Urea Nitrogen 41 mg/dl Creatinine 2.30 mg/dl Est Creatinine Clear Calc Drug Dose 17.4 ml/min Estimated GFR () 21.6 Estimated GFR (Non- 18.6 BUN/Creatinine Ratio 17.8 Random Glucose 103 mg/dl Calcium Level 9.1 mg/dl Magnesium Level 1.9 mg/dl Triglycerides Level 324 mg/dl Cholesterol Level 138 mg/dl HDL Cholesterol 33 mg/dl LDL Cholesterol, Calculated 40 mg/dl VLDL Cholesterol, Calculated 65 mg/dl Cholesterol/HDL Ratio 4.2 Thyroid Stimulating Hormone (TSH) 0.577 uIu/ml Test 09/03/16 06:57 Bedside Glucose 108 mg/dl Imaging: Imaging summarized in history of present illness EKG performed 09/02/16 at 12:10 PM revealed sinus bradycardia with sinus arrhythmia and right bundle branch block morphology. Telemetry reviewed: As noted above Assessment & Plan Impression: 65-year-old female 1. Presented with left upper, left lower extremity weakness, findings suggestive of right superior parietal stroke with findings of moderate multifocal narrowing of the right ulcer per artery and high-grade stenosis of the distal left vertebral artery. 2. Asymptomatic paroxysmal supraventricular tachycardia, no evidence of atrial fibrillation on telemetry 3. Stable sinus bradycardia otherwise. 4. Chronic ischemic heart disease, history of multivessel PCI with drug- eluting stents to LAD circumflex and RCA dating back to 2002. Branch vessel disease noted in 2006 with patent stents. Discussion/recommendations: Patient has been on chronic dual antiplatelet therapy with aspirin 81 mg daily and clopidogrel 75 mg daily due to her multivessel CAD, stents. Agree with plan to increase her dose of aspirin 162 mg daily, no definite indication for anticoagulation at the present time. Given the imaging findings , it may be difficult to prevent further stroke episodes with medication therapy with therapy change in her antiplatelet therapy or anticoagulation. Agree with increasing her atorvastatin 40 mg daily to 80 mg daily. At this time, she is symptomatically from SVC standpoint and I would continue her chronic dose of metoprolol tartrate 50 mg twice a day. Her blood pressure is elevated. Okay to have some degree of permissive hypertension, but should continue her current home dose of metoprolol, amlodipine, Imdur, and losartan. Agree with when necessary hydralazine. Likely proceed with outpatient seven-day nca certified concierge to definitively exclude any underlying atrial fibrillation and to assess for further SVT events. Jone Lambert, DO
--- NOTE | 2016-09-03 11:55 | NEUROLOGY CONSULTATION ---
DATE OF CONSULTATION: 09/03/2016 PRIMARY CARE PROVIDER: Joce Dutta MD REASON FOR CONSULTATION: Stroke. HISTORY OF PRESENT ILLNESS: An 85-year-old right-handed female with coronary artery disease, chronic kidney disease, diabetes, dyslipidemia, hypertension, woke up in the morning of admission with left arm and leg feeling heavy with some difficulty with walking. She went back to bed and woke up later, symptoms have persisted, but have improved markedly over the day. There was no accompanying headache, change in vision, vertigo, or numbness in the face, arm or leg. There was no chest pain, palpitation, or shortness of breath. She has not had any fevers, chills, sweats, or weight loss. There had not been any head or neck injury, chiropractic manipulation, medical or dental procedures. She has been compliant with her medications. She is modestly hypertensive in the Emergency Room. Her CT of the head was nonrevealing. MRI of the brain, which I have reviewed, shows several small punctate foci of acute ischemic change in the right superior parietal convexities, which is very consistent with the potential embolic source. MRA of the head showed high grade stenosis of the distal left third, moderate multifocal narrowing of the right middle cerebral artery and mild atherosclerotic changes in the anterior circulation. MRA of the neck was nearly nondiagnostic. There was a suggestion that the internal carotids were narrowed versus artifact, high grade stenosis in th 2. High-grade stenosis distal left vertebral artery with multifocal areas of significant stenosis in a more proximal location. with multifocal areas just more proximally. However, again the carotid ultrasound did show no high-grade stenosis. There is a 30% or 40% left internal carotid stenosis, but no high-grade stenosis. Her EKG on admission showed a sinus bradycardia with sinus arrhythmia. She had some SVT after her metoprolol was held. LABORATORY DATA: White count 7.1, H&H 10/33.5, and platelet count 158. PT 11.4 and PTT 23.9. Chemistry: Blood sugar on admission 134. Sodium 144, potassium 4.1, BUN and creatinine 39/2, and glucose 136. Troponin positive. The patient indicates that she lives with another person. Ambulates without assistive device. She did have a fall on a curb about a year ago and an unfamiliar location. She denies any numbness and tingling in the feet. PHYSICAL EXAMINATION: VITAL SIGNS: Temperature 36.5, pulse 78, respiratory rate 16, blood pressure 182/71, and oxygen saturation 94%. GENERAL: Awake, alert, and oriented x3. No right/left confusion. There is no aphasia. Normal visual spatial relationships. HEART: No carotid bruits. No heart murmurs. Heart is regular rate and rhythm. NEUROLOGIC: Pupils equal. Optic nerves unremarkable. Visuals lizarraga without visual extinction. Normal motility. Facial symmetry. There is mild flattening of the left nasal labial fold. Normal facial sensation. Speech is nondysarthric. Motor: Left upper extremity is about 4/5 with a mild left drift and decreased left rapid alternating movements. Left lower extremity is nearly full. [id number] is mildly clumsy on the left. [id number] is normal. Sensation is intact to light touch and temperature. Vibration is symmetric and present at the toes. Reflexes are symmetric. Toes are downgoing. Gait is fairly unremarkable with a walker. IMPRESSION: Patchy right MCA infarction, suggestive of embolism, although no clear embolic source has been found today. PLAN: Echocardiography. CardioNet monitor as an outpatient. She could have artery to artery embolism from the moderate right MCA stenosis as well. At current, we have elected to continue on Plavix as cardiology thinks there is ongoing benefit. We will increase her aspirin dose to 162 mg daily. Gradually control her blood pressure. Her lipids and diabetes appear well controlled. Again, she will wear CardioNet as an outpatient to rule out occult atrial fibrillation. NELSON
--- NOTE | 2016-09-03 14:15 | ECHOCARDIOGRAM REPORT ---
*NOTICE TO RECEIVING LIBERTARIAN AGENCY This information is strictly Confidential and protected under [place] law. [place] law prohibits you from making any further disclosure of this information unless further disclosure is expressly permitted by the written consent of the person to whom it pertains or is authorized by law. A general authorization for the release of medical or other information is not sufficient for this purpose. Hospital accepts no responsibility if the information is made available to any other person, INCLUDING THE PATIENT. Interpretation Summary * Name: JOANA GARCÍA Study Date: 09/03/2016 07:37 AM BP: 137/60 mmHg * Patient Location: .2E\S\E207\S\1 HR: 53 * : 1930 (M/d/yyyy) Gender: Female Height: 60 in * Age: 85 yrs Ethnicity: CA Weight: 196 lb * Ordering Physician: Analy Wood * Referring Physician: Self, Referred * Performed By: Nuris Pina RCS * * Reason For Study: CVA * BSA: 1.9 m2 * The study was technically adequate. * -- Conclusions -- * Sinus bradycardia at 55 bpm was present during the echocardiogram evaluation. * There is mild concentric left ventricular hypertrophy. * The left ventricular wall motion is normal. * Ejection Fraction = 60-65%. * There is mild mitral regurgitation. * Grade I diastolic dysfunction, (abnormal relaxation pattern). Procedure Details * A complete two-dimensional transthoracic echocardiogram was performed (2D, M-mode, Doppler and color flow Doppler). Left Ventricle * The left ventricle is normal in size. * There is mild concentric left ventricular hypertrophy. * Left ventricular systolic function is normal. * Ejection Fraction = 60-65%. * The left ventricular wall motion is normal. Right Ventricle * The right ventricle is normal size. * The right ventricular systolic function is normal as assessed by tricuspid annular plane systolic excursion (TAPSE) (normal >1.5 cm). Atria * The left atrial size is normal. * Right atrial size is normal. * There is no evidence of atrial septal defect, but resolution does not allow assessment for a patent foramen ovale. Mitral Valve * The mitral valve is normal. * There is no mitral valve stenosis. * There is mild mitral regurgitation. Tricuspid Valve * The tricuspid valve is normal. * There is no tricuspid stenosis. * Significant tricuspid regurgitation is absent. Aortic Valve * The aortic valve is trileaflet. * Aortic stenosis is absent. * There is no significant aortic regurgitation. Pulmonic Valve * The pulmonary valve is not well seen, but the Doppler examination is normal without significant regurgitation or stenosis. Great Vessels * The aortic root and proximal ascending aorta are normal sized. Pericardium/Pleural * There is no pericardial effusion. Great Vessels * Normal inferior vena cava diameter and respiratory variation suggests normal central venous pressure. Left Ventricular Diastolic Function * Grade I diastolic dysfunction, (abnormal relaxation pattern). MMode 2D Measurements and Calculations IVSd 1.3 cm IVSs 2.2 cm LVIDd 5.5 cm LVIDs 3.2 cm LVPWd 1.4 cm LVPWs 1.6 cm IVS/LVPW 0.98 FS 42.4 % EDV(Teich) 150.3 ml ESV(Teich) 40.7 ml EF(Teich) 72.9 % EDV(cubed) 170.6 ml ESV(cubed) 32.6 ml EF(cubed) 80.9 % % IVS thick 68.6 % % LVPW thick 16.0 % LV mass(C)d 323.2 grams LV mass(C)dI 174.6 grams/m\S\2 LV mass(C)s 260.4 grams LV mass(C)sI 140.7 grams/m\S\2 SV(Teich) 109.6 ml SI(Teich) 59.2 ml/m\S\2 SV(cubed) 138.1 ml SI(cubed) 74.6 ml/m\S\2 Ao root diam 3.2 cm Ao root area 7.9 cm\S\2 ACS 1.9 cm LA dimension 3.7 cm LA/Ao 1.2 LVOT diam 2.0 cm LVOT area 3.2 cm\S\2 LVAd ap4 33.3 cm\S\2 LVLd ap4 8.0 cm EDV(MOD-sp4) 114.5 ml EDV(sp4-el) 118.3 ml LVAs ap4 21.6 cm\S\2 LVLs ap4 6.4 cm ESV(MOD-sp4) 59.5 ml ESV(sp4-el) 61.4 ml EF(MOD-sp4) 48.0 % EF(sp4-el) 48.1 % LVAd ap2 30.8 cm\S\2 LVLd ap2 7.8 cm EDV(MOD-sp2) 103.0 ml EDV(sp2-el) 103.5 ml LVAs ap2 19.5 cm\S\2 LVLs ap2 6.6 cm ESV(MOD-sp2) 50.1 ml ESV(sp2-el) 49.2 ml EF(MOD-sp2) 51.4 % EF(sp2-el) 52.4 % LVLd %diff -2.66 % EDV(MOD-bp) 109.1 ml LVLs %diff 1.8 % ESV(MOD-bp) 54.3 ml EF(MOD-bp) 50.3 % SV(MOD-sp4) 55.0 ml SI(MOD-sp4) 29.7 ml/m\S\2 SV(MOD-sp2) 52.9 ml SI(MOD-sp2) 28.6 ml/m\S\2 SV(MOD-bp) 54.8 ml SI(MOD-bp) 29.6 ml/m\S\2 SV(sp4-el) 56.8 ml SI(sp4-el) 30.7 ml/m\S\2 SV(sp2-el) 54.3 ml SI(sp2-el) 29.3 ml/m\S\2 Doppler Measurements and Calculations MV E max joey 70.6 cm/sec MV A max joey 138.0 cm/sec MV E/A 0.51 MV P1/2t max joey 96.5 cm/sec MV P1/2t 116.7 msec MVA(P1/2t) 1.9 cm\S\2 MV dec slope 242.3 cm/sec\S\2 MV dec time 0.48 sec Ao V2 max 163.3 cm/sec Ao max PG 10.7 mmHg Ao max PG (full) 5.3 mmHg GUERITA(V,A) 2.2 cm\S\2 GUERITA(V,D) 2.2 cm\S\2 LV V1 max PG 5.3 mmHg LV V1 max 115.4 cm/sec MR max joey 612.9 cm/sec MR max PG 150.3 mmHg PA V2 max 108.3 cm/sec PA max PG 4.7 mmHg TR max joey 265.2 cm/sec
[2016-09-03] MEDS: DOCUSATE SODIUM 100 MG CAP PO SCH (21:04)
[2016-09-03] MEDS: ATORVASTATIN 40 MG TAB PO SCH (21:05)
[2016-09-04] VITALS (7 sets, daily range): BP systolic 92–212; BP diastolic 45–97; PULSE 56–67; TEMP 36.8–37; O2SAT 93–95
[2016-09-04] MEDS: HydrALAZINE HCL 20 MG/ML VIAL IV. PRN (03:59)
[2016-09-04 06:38] LABS: BUN/CREATININE RATIO 20.1 (10-20); POTASSIUM 3.9 mmol/L (3.5-5.1)
[2016-09-04 07:18] LABS: CALCIUM 9.2 mg/dl (8.5-10.1)
[2016-09-04] MEDS: ASPIRIN 81 MG ECTAB PO SCH (08:17)
[2016-09-04] MEDS: ISOSORBIDE MONONITRATE 30 MG TABCR PO SCH (08:18)
[2016-09-04] MEDS: AMLODIPINE BESYLATE 5 MG TAB PO SCH (08:18)
[2016-09-04] MEDS: PANTOprazole SOD 40 MG TAB PO SCH (08:18)
[2016-09-04] MEDS: OXYBUTYNIN CHLORIDE 5 MG TAB PO SCH (08:19)
[2016-09-04] MEDS: CYANOCOBALAMIN 500 MCG TAB (VIT B-12) PO SCH (08:19)
[2016-09-04] MEDS: CLOPIDOGREL BISULFATE 75 MG TAB PO SCH (08:19)
[2016-09-04] MEDS: FERROUS SULFATE 325 MG TAB PO SCH (08:20)
[2016-09-04] MEDS: METOPROLOL TARTRATE 50 MG TAB PO SCH (08:20)
[2016-09-04] MEDS: LOSARTAN POTASSIUM 50 MG TAB PO SCH (08:20)
[2016-09-04] MEDS: INSULIN ASPART 100 UNITS/ML 3 ML PEN SC SCH ×2 (08:22→12:05)
--- NOTE | 2016-09-04 11:48 | Progress Note ---
Subjective Date of Service: Sep 04, 2016. Subjective Pt evaluation today including: conversation w/ patient, physical exam, lab review, review of studies, review of inpatient medication list Saw/examined the patient in room 207 She is seated in a chair, doing well +nausea this morning No other issues to note; ambulating well Problem List Medical Problems: (1) Elevated troponin Status: Acute (2) Head injury Status: Acute (3) Hypertension Status: Acute (4) Numbness on left side Status: Acute (5) Scalp hematoma Status: Acute (6) Status post fall Status: Acute Review of Systems Constitutional: No fever, No chills, No weakness Respiratory: No cough, No sputum, No shortness of breath Cardiac: No chest pain, No edema, No palpitations Abdomen: No pain, No nausea, No vomiting, No diarrhea Heme: No abnormal bleeding/bruising Medications Current Inpatient Medications Medications (Trade) Dose Ordered Sig/Caty Route Start Time Stop Time Status Last Admin Dose Admin Acetaminophen (Tylenol Tab) 650 mg Q4H PRN PO 09/02/16 15:45 10/02/16 15:44 09/04/16 05:40 650 MG Ondansetron HCl (Zofran Inj) 4 mg Q6H PRN IV 09/02/16 15:45 10/02/16 15:44 09/04/16 08:29 4 MG Miscellaneous Information (Pharmacist Discharge Med Rec Consult) 1 ea UD PRN N/A 09/02/16 15:45 10/02/16 15:44 Insulin Aspart (novoLOG ASPART) SLIDING SCALE If C... ACHS SC 09/02/16 21:00 10/02/16 20:59 09/04/16 08:22 3 UNITS Glucose (Glucose 40% Gel) 15-30 GRAMS 15 GRAMS... UD PRN PO 09/02/16 16:00 10/02/16 15:59 Glucose (Glucose Chew Tab) 4-8 Tablets 4 Tabl... UD PRN PO 09/02/16 16:00 10/02/16 15:59 Dextrose (Dextrose 50% 50ML Syringe) 25-50ML OF 50% DW IV FOR... UD PRN IV 09/02/16 16:00 10/02/16 15:59 Glucagon (Glucagon Inj) 1 mg UD PRN SQ 09/02/16 16:00 7/23/17 15:59 Amlodipine Besylate (Norvasc Tab) 10 mg DAILY PO 09/03/16 09:00 10/03/16 08:59 09/04/16 08:18 10 MG Clopidogrel Bisulfate (plAVix TAB) 75 mg DAILY PO 09/03/16 09:00 10/03/16 08:59 09/04/16 08:19 75 MG Cyanocobalamin (Vitamin B-12 Tab) 1,000 mcg DAILY PO 09/03/16 09:00 10/03/16 08:59 09/04/16 08:19 1,000 MCG Docusate Sodium (coLACE CAP) 200 mg HS PO 09/02/16 21:00 10/02/16 20:59 09/03/16 21:04 200 MG Isosorbide Mononitrate (Imdur Ext Rel Tab) 90 mg QAM PO 09/03/16 09:00 10/03/16 08:59 09/04/16 08:18 90 MG Losartan Potassium (coZAAR TAB) 100 mg DAILY PO 09/03/16 09:00 10/03/16 08:59 09/04/16 08:20 100 MG Metoprolol Tartrate (Lopressor Tab) 50 mg BID PO 09/02/16 21:00 10/02/16 20:59 09/04/16 08:20 50 MG Oxybutynin Chloride (Ditropan Tab) 5 mg BID PO 09/02/16 21:00 10/02/16 20:59 09/04/16 08:19 5 MG Pantoprazole Sodium (Protonix Tab) 40 mg BID PO 09/02/16 21:00 10/02/16 20:59 09/04/16 08:18 40 MG Ferrous Sulfate (Feosol Tab) 325 mg BID PO 09/02/16 21:00 10/02/16 20:59 Hydralazine HCl (HydrALAZINE INJ) 10 mg Q6H PRN IV. 09/02/16 16:00 10/02/16 15:59 09/04/16 03:59 10 MG Atorvastatin Calcium (Lipitor Tab) 80 mg HS PO 09/02/16 21:00 10/02/16 20:59 09/03/16 21:05 80 MG Aspirin (Ecotrin Tab) 162 mg QAM PO 09/03/16 09:00 10/03/16 08:59 09/04/16 08:17 162 MG Objective Vital Signs Date Time Temp Pulse Resp B/P (MAP) Pulse Ox O2 Delivery O2 Flow Rate FiO2 09/04/16 08:00 67 09/04/16 08:00 Room Air 09/04/16 07:51 37.0 56 16 132/52 (78) 95 Room Air 09/04/16 04:49 143/57 (85) 09/04/16 04:00 Room Air 09/04/16 03:55 212/97 (135) 09/04/16 03:30 37.0 65 18 180/85 (116) 94 Room Air 09/04/16 00:00 Room Air 09/03/16 23:45 37.0 54 18 152/62 (92) 91 Room Air 09/03/16 20:25 36.7 62 20 177/79 (111) 94 Room Air 09/03/16 20:00 Room Air 09/03/16 16:00 Room Air 09/03/16 15:48 36.7 58 18 133/75 (94) 96 Room Air 09/03/16 12:12 36.8 60 20 120/76 (91) 96 Room Air 09/03/16 12:00 Room Air Physical Exam General Appearance: no apparent distress, + obese Respiratory/Chest: lungs clear, normal breath sounds, no respiratory distress, no accessory muscle use Cardiovascular: regular rate, rhythm, no edema, no murmur Abdomen: normal bowel sounds, non tender, soft Extremities: normal inspection, no pedal edema Neurologic/Psychiatric: churn operator II-XII nml as tested, no motor/sensory deficits, alert, normal mood/affect, oriented x 3 Skin: normal color Laboratory Results Last 24 Hours Test 09/03/16 16:09 09/03/16 20:27 09/04/16 05:38 09/04/16 07:03 Bedside Glucose 116 mg/dl 105 mg/dl 106 mg/dl Sodium Level 144 mmol/L Potassium Level 3.9 mmol/L Chloride Level 113 mmol/L Carbon Dioxide Level 23 mmol/L Anion Gap 8.0 mmol/L Blood Urea Nitrogen 40 mg/dl Creatinine 2.00 mg/dl Est Creatinine Clear Calc Drug Dose 20.1 ml/min Estimated GFR () 25.6 Estimated GFR (Non- 22.0 BUN/Creatinine Ratio 20.1 Random Glucose 100 mg/dl Calcium Level 9.2 mg/dl Assessment and Plan This is an 85 year old female with a PMH of CAD s/p stents, DM2, CKD stage IV, HTN, HLD presents with left sided weakness Acute R Parietal CVA patient presents with L arm/L leg weakness, difficulty with ambulation Head CT negative Brain MRI - acute ischemic R parietal - several small punctate foci Lipitor dose increased from 40mg to 80mg Aspirin increased from 81mg to 162 mg continue Plavix PT/OT echo - no acute findings, no PFO/ASD appreciate neurology input Left Vertebral Stenosis MRA - high grade stenosis distal left vertebral artery with multifocal areas of significant stenosis in a more proximal location Carotid U/S - 30-40% narrowing of L internal carotid continue statin, aspirin, Plavix Paroxysmal Supraventricular Tachycardia noted on tele appreciate cardiology input for now, continue b-margaret dose currently continue Plavix, increased dose of aspirin, increased dose of statin Hypertensive Urgency presnted with BP ~ 190s continue home medications on discharge - continue metoprolol, isosorbide, losartan, and amlodipine - would allow for permissive HTN due to possible CVA ELEVATED TROPONIN, HX CAD - suspect troponin elevation due to HTN - no reports of chest pain, EKG without acute ST changes - ordered for Resting ECHO to assess any new wall motion abnormality -Cardiology eval requested - continue ASA, Plavix, beta margaret, statin, nitrate DM - hgb a1c 5.9 08/2016 - hold oral agents and utilize SSI while hospitalized DVT PROPHYLAXIS - ordered for sub q heparin CODE STATUS - Patient is a DNR DISPOSITION PT/OT eval requested to assess gait instability was living at home prior , independent in [facility]'s Medicine follow up with Dr Pham Cardiology follow up with Dr Lambert LEFT SIDED WEAKNESS - admit to tele - patient presenting with left arm and left leg weakness that was present when she woke up this morning; symptoms currently improving - head CT negative - brain MRI/MRA, neck MRA, echo - neuro checks - patient already on ASA and Plavix due to CAD - if imaging positive for CVA, will need to consider changing to Aggrenox - on atorvastatin 40mg - will increase to 80mg - neuro consult, input appreciated HYPERTENSIVE URGENCY - BP on arrival 190/81 - s/p IV hydralazine with improvement - continue metoprolol, isosorbide, losartan, and amlodipine - would allow for permissive HTN due to possible CVA ELEVATED TROPONIN, HX CAD - suspect troponin elevation due to HTN - no reports of chest pain, EKG without acute ST changes - continue to cycle cardiac enzymes, check resting echo - continue ASA, Plavix, beta margaret, statin, nitrate DM - hgb a1c 5.9 08/2016 - hold oral agents and utilize SSI while hospitalized DVT PROPHYLAXIS - SCDs until MRI resulted CODE STATUS - Patient is a DNR as per my discussion with her. DISPO - In my clinical judgment this beneficiary meets acute admission criteria, established by CMS, that includes being hospitalized through two midnights.
--- NOTE | 2016-09-04 12:13 | PROGRESS NOTE ---
DATE: 09/04/2016 SUBJECTIVE: I am seeing Mrs. Dawn in followup of a patchy and mild right MCA infarction with a suggestion or appearance that it may be embolic. There is also some moderate right MCA stenosis. No atrial dysrhythmia was identified. Her echocardiography was nonrevealing. There is normal left atrial size. The patient had a mild headache this morning, when she was modestly hypertensive at 212/97 that has resolved. She has not had any new neurologic symptoms. She feels her left leg at 95%. PHYSICAL EXAMINATION: GENERAL: She is awake and alert. There is normal speech and language. Affect is appropriate. VITAL SIGNS: 36.8, 60, 16, 92/45, 93%. HEENT: There is normal extraocular motility, visual lizarraga. No visual extinction. There is mild flattening of the left nasal labial fold. EXTREMITIES: Left upper extremity is 4+. There is a mild left drift. Left lower extremity appears 5. NEUROLOGIC: There is mild clumsiness on left [id number]. [id number] is essentially normal and gait is unremarkable with a walker. IMPRESSION: Patchy right middle cerebral artery infarction suggestive of an embolic etiology, could be [id number] versus cardioembolic. No atrial fibrillation was identified. PLAN. CardioNet monitor as an outpatient. At present, Plavix and aspirin 162. The patient should monitor for signs of bleeding or bruising. She desires to go home. She will need outpatient physical therapy and occupational therapy. If she has any difficulty at home such as falls, she may need some inpatient therapy. From a neurologic perspective, I have no objection to her being discharged. NELSON
[2016-09-04] MEDS ORDERED: ASPCH81X PO (13:25)
[2016-09-04] MEDS ORDERED: ATOR-26 PO (13:25)
--- NOTE | 2016-09-04 13:37 | Discharge Instructions ---
Discharge Instructions Date of Service Sep 04, 2016. Admission Reason for Admission: Left Sided Weakness Discharge Discharge Diagnosis / Problem: Acute R Parietal CVA; High Grade Stenosis of Vertebral Artery Discharge Goals Goal(s): Decrease discomfort, Improve function, Diagnostic testing, Therapeutic intervention Activity Recommendations Activity Limitations: resume your previous activity . Instructions / Follow-Up Instructions / Follow-Up Please follow-up with Dr. Dutta on September 05 at 9:25AM Please follow-up with neurology as an outpatient * Your dose of Lipitor is increased to 80mg daily * Your dose of Aspirin is increased to 162mg daily * Continue taking Plavix * You will need outpatient CardioNet monitoring Risk Factors for Stroke: You can reduce your chances of stroke by working with your medical provider to adopt a healthy lifestyle. Some specific ways to lower your chance of stroke are: * If you are a smoker, now is the time to stop smoking cigarettes * If you are diabetic, improve the control of your blood sugars * Avoid excessive amounts of alcohol * Control high blood pressure * Lose weight if you are overweight * Be sure to lead an active lifestyle * Eat a healthy diet low in salt, cholesterol and fat You should know about other risk factors for stroke that you are unable to control. These include: * Age 55 years or older * Male gender * Certain racial groups: , or / * Family History of Stroke, Mini stroke or Heart Attack * Sickle Cell Disease Follow Up: It is important for you to keep your follow up appointments with your medical provider. Current Hospital Diet Patient's current hospital diet: AHA Diet (Heart Healthy), Diabetes Type 2 Diet Discharge Diet Recommended Diet: AHA Diet (Heart Healthy), Diabetes Type 2 Diet Pending Studies Studies pending at discharge: no Laboratory Results Hemoglobin A1c Test 09/02/16 13:30 Range/Units Estimated Average Glucose 140 mg/dl Hemoglobin A1c 6.5 H 4.5-5.6 % Lipid Panel Test 09/03/16 04:23 Range/Units Triglycerides Level 324 H 0-150 mg/dl Cholesterol Level 138 0-200 mg/dl HDL Cholesterol 33 mg/dl Cholesterol/HDL Ratio 4.2 LDL Cholesterol, Calculated 40 mg/dl Medical Emergencies . Who to Call and When: Medical Emergencies: Call 911 immediately if you experience any of the following warning signs and symptoms of Stroke: * Sudden numbness or weakness of the face, arm or leg, especially on one side of the body * Sudden confusion, trouble speaking or understanding * Sudden trouble seeing in one or both eyes * Sudden trouble walking, dizziness, loss of balance or coordination * Sudden severe headache with no cause Do not delay calling 911 if you experience any warning signs or symptoms of a stroke. Delay in seeking medical attention may affect what treatments can be given to you. . Non-Emergent Contact Non-Emergency issues call your: Primary Care Provider, Neurologist . . "Provider Documentation" section prepared by Latha Sullivan. . Stroke Core Measures Reason no t-PA for Stroke: Treatment not indicated Reason no antithrom by day 2: Treatment provided - N/A Reason no antithrom at D/C: Treatment provided - N/A Reason no statin at D/C: Treatment provided - N/A Reason no anticoag w/a fib: Treatment not indicated VTE Core Measure Inpt VTE Proph given/why not?: SCD's
--- NOTE | 2016-09-04 13:39 | Discharge Summary ---
Discharge Summary Date of Service Sep 04, 2016. Discharge Summary Admission Date: Sep 02, 2016 at 15:45 Discharge Date: Sep 04, 2016 Discharge Disposition: Home Principal Diagnosis: Acute R Parietal CVA; High Grade Stenosis of Vertebral Artery Medication Reconciliation Changed Medications: Aspirin (Aspirin Chewable) 81 Mg Chew 162 MG PO DAILY for 30 Days, #60 TAB (Changed from: 81 MG) Atorvastatin (Lipitor) 80 Mg Tab 1 TAB PO DAILY for 30 Days, #30 TAB 5 Refills (Changed from: Atorvastatin ( Lipitor) 40 Mg Tab 40 Mg PO HS) Continued Medications: Amlodipine (Norvasc) 10 Mg Tab 10 MG PO DAILY, TAB Cholecalciferol (Vitamin D3) 5,000 Unit Tab 5000 UNIT(INT) PO HS Clopidogrel Bisulfate (Plavix) 75 Mg Tab 75 MG PO DAILY, TAB Cyanocobalamin (Vitamin B-12 1000 Mcg) 1,000 Mcg Tab 1 TAB PO DAILY for 30 Days, #30 TAB 2 Refills Docusate Sodium (Docqlace) 100 Mg Cap 2 CAP PO HS Ferrous Sulfate (Kp Ferrous Sulfate) 325 Mg Tab 1 TAB PO BID for 30 Days, #60 TAB 3 Refills Isosorbide Mononitrate Ext Rel (Imdur Ext Rel) 30 Mg Tabcr 1 TAB PO QAM, TAB Isosorbide Mononitrate Ext Rel (Imdur Ext Rel) 60 Mg Ertab 1 TAB PO QAM, TAB Losartan Potassium (Cozaar) 100 Mg Tab 100 MG PO DAILY, TAB Meclizine Hcl (Meclizine Hcl) 25 Mg Tab 25 MG PO TID PRN Metoprolol Tartrate (Metoprolol Tartrate) 50 Mg Tab 50 MG PO BID Nitroglycerin (Nitrostat) 0.4 Mg Sub 0.4 MG UT PRN, BTL Oxybutynin Chloride (Oxybutynin Chloride) 5 Mg Tab 5 MG PO BID Pantoprazole (Protonix) 40 Mg Tab 40 MG PO BID for 30 Days Sitagliptin (Januvia) 25 Mg Tab 1 TAB PO DAILY, #30 Admission Information HPI (per Admitting provider): 85 year old female who presents to the ER with left arm weakness and heaviness. Patient reports she woke up around 0500 this morning and her left arm was heavy and numb and he was unable to move it. She then got up to go to the bathroom and reports her left leg was dragging however she was able to walk. Patient then went back to bed and woke up around 930 and her symptoms persisted. She then presented to the ER for further evaluation. She reports her symptoms are improving. She feels as though her functions has returned about 80%. She denies headache, blurred vision, lightheadedness, dizziness, or syncope. She reports she otherwise has been feeling well recently. No chest pain or shortness of breath. She denies abdominal pain, nausea, vomiting, or diarrhea. No fever or chills. She denies urinary symptoms. In the ER, head CT is negative. BP was elevated at 190/81. She received IV hydralazine and BP has improved. Trop 0.075 , EKG does not show any acute ST changes. Physical Exam (per Admitting): General Appearance: no apparent distress Head: normocephalic Eyes: normal inspection, PERRL ENT: hearing grossly normal Neck: supple, no JVD Respiratory/Chest: lungs clear, normal breath sounds, no respiratory distress Cardiovascular: regular rate, rhythm, normal peripheral pulses, + pertinent finding (teace edema BLLE) Abdomen/GI: normal bowel sounds, non tender, soft Extremities/Musculoskelatal: normal inspection, no calf tenderness Neurologic/Psych: alert, normal mood/affect, oriented x 3, + pertinent finding (decreased sensation to LUE and LLE; LUE 4/5, RUE 4/5, LLE 4/5, RLE 5/5 ; no other focal deficits noted) Skin: normal color, warm/dry Hospital Course This is an 85 year old female with a PMH of CAD s/p stents, DM2, CKD stage IV, HTN, HLD presents with left sided weakness Acute R Parietal CVA patient presents with L arm/L leg weakness, difficulty with ambulation Head CT negative Brain MRI - acute ischemic R parietal - several small punctate foci Lipitor dose increased from 40mg to 80mg Aspirin increased from 81mg to 162 mg continue Plavix PT/OT echo - no acute findings, no PFO/ASD appreciate neurology input Left Vertebral Stenosis MRA - high grade stenosis distal left vertebral artery with multifocal areas of significant stenosis in a more proximal location Carotid U/S - 30-40% narrowing of L internal carotid continue statin, aspirin, Plavix Paroxysmal Supraventricular Tachycardia noted on tele appreciate cardiology input for now, continue b-margaret dose currently continue Plavix, increased dose of aspirin, increased dose of statin Hypertensive Urgency presnted with BP ~ 190s continue home medications on discharge - continue metoprolol, isosorbide, losartan, and amlodipine - would allow for permissive HTN due to possible CVA ELEVATED TROPONIN, HX CAD - suspect troponin elevation due to HTN - no reports of chest pain, EKG without acute ST changes - ordered for Resting ECHO to assess any new wall motion abnormality -Cardiology eval requested - continue ASA, Plavix, beta margaret, statin, nitrate DM - hgb a1c 5.9 08/2016 - hold oral agents and utilize SSI while hospitalized DVT PROPHYLAXIS - ordered for sub q heparin CODE STATUS - Patient is a DNR DISPOSITION PT/OT eval requested to assess gait instability was living at home prior , independent in [facility]'s Medicine follow up with Dr Pham Cardiology follow up with Dr Lambert LEFT SIDED WEAKNESS - admit to tele - patient presenting with left arm and left leg weakness that was present when she woke up this morning; symptoms currently improving - head CT negative - brain MRI/MRA, neck MRA, echo - neuro checks - patient already on ASA and Plavix due to CAD - if imaging positive for CVA, will need to consider changing to Aggrenox - on atorvastatin 40mg - will increase to 80mg - neuro consult, input appreciated HYPERTENSIVE URGENCY - BP on arrival 190/81 - s/p IV hydralazine with improvement - continue metoprolol, isosorbide, losartan, and amlodipine - would allow for permissive HTN due to possible CVA ELEVATED TROPONIN, HX CAD - suspect troponin elevation due to HTN - no reports of chest pain, EKG without acute ST changes - continue to cycle cardiac enzymes, check resting echo - continue ASA, Plavix, beta margaret, statin, nitrate DM - hgb a1c 5.9 08/2016 - hold oral agents and utilize SSI while hospitalized DVT PROPHYLAXIS - SCDs until MRI resulted CODE STATUS - Patient is a DNR as per my discussion with her. DISPO - In my clinical judgment this beneficiary meets acute admission criteria, established by CMS, that includes being hospitalized through two midnights. Total time spent on discharge = 45 minutes This includes examination of the patient, discharge planning, medication reconciliation, and communication with other providers. Discharge Instructions Please follow-up with Dr. Dutta on September 05 at 9:25AM Please follow-up with neurology as an outpatient * Your dose of Lipitor is increased to 80mg daily * Your dose of Aspirin is increased to 162mg daily * Continue taking Plavix * You will need outpatient CardioNet monitoring
[2016-09-04] MEDS ORDERED: IV FLUIDS COMPLETED PRN (14:00)
--- NOTE | 2016-09-04 14:56 | Pharmacy Progress Note ---
Pharmacist Stroke Counseling Date of Service Sep 04, 2016. Scope Pharmacy has been consulted to provide medication discharge counseling for this patient admitted with ischemic stroke as per the Pharmacist Discharge Counseling for Stroke Patients Protocol. Medications on Discharge Changed Medications: Aspirin (Aspirin Chewable) 81 Mg Chew 162 MG PO DAILY for 30 Days, #60 TAB (Changed from: 81 MG) Atorvastatin (Lipitor) 80 Mg Tab 1 TAB PO DAILY for 30 Days, #30 TAB 5 Refills (Changed from: Atorvastatin ( Lipitor) 40 Mg Tab 40 Mg PO HS) Continued Medications: Amlodipine (Norvasc) 10 Mg Tab 10 MG PO DAILY, TAB Cholecalciferol (Vitamin D3) 5,000 Unit Tab 5000 UNIT(INT) PO HS Clopidogrel Bisulfate (Plavix) 75 Mg Tab 75 MG PO DAILY, TAB Cyanocobalamin (Vitamin B-12 1000 Mcg) 1,000 Mcg Tab 1 TAB PO DAILY for 30 Days, #30 TAB 2 Refills Docusate Sodium (Docqlace) 100 Mg Cap 2 CAP PO HS Ferrous Sulfate (Kp Ferrous Sulfate) 325 Mg Tab 1 TAB PO BID for 30 Days, #60 TAB 3 Refills Isosorbide Mononitrate Ext Rel (Imdur Ext Rel) 30 Mg Tabcr 1 TAB PO QAM, TAB Isosorbide Mononitrate Ext Rel (Imdur Ext Rel) 60 Mg Ertab 1 TAB PO QAM, TAB Losartan Potassium (Cozaar) 100 Mg Tab 100 MG PO DAILY, TAB Meclizine Hcl (Meclizine Hcl) 25 Mg Tab 25 MG PO TID PRN Metoprolol Tartrate (Metoprolol Tartrate) 50 Mg Tab 50 MG PO BID Nitroglycerin (Nitrostat) 0.4 Mg Sub 0.4 MG UT PRN, BTL Oxybutynin Chloride (Oxybutynin Chloride) 5 Mg Tab 5 MG PO BID Pantoprazole (Protonix) 40 Mg Tab 40 MG PO BID for 30 Days Sitagliptin (Januvia) 25 Mg Tab 1 TAB PO DAILY, #30 Action The above medications, specifically ones for stroke treatment/prophylaxis, have been reviewed in detail with the patient and/or patient patient portal representative(s) prior to discharge. This includes indication, common adverse reactions, drug interactions, and medication administration. Medication counseling has been employed using the teach-back method to ensure understanding. Outcome The patient and/or patient patient portal representative(s) have demonstrated understanding of the medications. Please note, they are aware that the pharmacist will call them within 72 hours post-discharge to confirm that the appropriate medications are being taken and answer any further medication related questions the patient might have at that time. Contact information Individual to be contacted: Almas Dawn Relationship to patient (if applicable): Self Phone number: [phone] (may call cell if no one answers home phone ) Best time to call: after 11am Additional comments: Also discussed resuming Januvia tomorrow. Januvia was on hold for admission and NovoLog bolus insulin was used instead. Pt has follow up appt with Dr Rodriguez tomorrow morning. Thank you for allowing pharmacy to be involved in the care of this patient. Please call [phone] or [phone] with any additional questions
--- NOTE | 2016-09-06 15:13 | Pharmacy Progress Note ---
Pharmacist Post D/C Phone Note Date of phone call: Sep 06, 2016. Individual with whom pharmacist spoke to: Almas Dawn The following questions were reviewed during the phone call with responses listed below each: Can you tell me the medications that you are currently taking as well as when and how you take each medication? - patient able to tell me about what changes were made and what she was taking When have you missed any doses of your medications? - no uses pill box that accommodates both am and pm doses What side effects are you having from your medications? - denies bruising and bleeding; denies muscle pains What questions do you have about your medications? - none What problems are you having obtaining your medications? - yes When is your next appointment with your primary care doctor? - had yesterday Additional comments: - patient inquired why she was so cold. I told her it could potentially be the metoprolol but that this was an important medication. I told her that I suffer from similar difficulties/that this was very difficult for me as well and recommended gloves. As per the Pharmacist Discharge Counseling for Stroke Patients Protocol, this phone call has been completed within 72 hours of discharge. Thank you for allowing us to be involved in the care of this patient. Medications Dose Route/Sig Max Daily Dose Days Date Category Lipitor (Atorvastatin Calcium) 80 Mg Tab 1 Tab PO DAILY 30 09/04/16 Rx Aspirin Chewable (Aspirin) 81 Mg Chew 162 Mg PO DAILY 30 09/04/16 Rx Docqlace (Docusate Sodium) 100 Mg Cap 2 Cap PO HS 09/02/16 Reported Kp Ferrous Sulfate (Ferrous Sulfate) 325 Mg Tab 1 Tab PO BID 30 09/02/16 Reported Vitamin B-12 1000 Mcg (Cyanocobalamin) 1,000 Mcg Tab 1 Tab PO DAILY 30 09/02/16 Reported Norvasc (Amlodipine Besylate) 10 Mg Tab 10 Mg PO DAILY 09/02/16 Reported Protonix (Pantoprazole) 40 Mg Tab 40 Mg PO BID 30 09/02/16 Rx Januvia (Sitagliptin) 25 Mg Tab 1 Tab PO DAILY 09/02/16 Reported Cozaar (Losartan Potassium) 100 Mg Tab 100 Mg PO DAILY 09/02/16 Reported Imdur Ext Rel (Isosorbide Mononitrate) 60 Mg Ertab 1 Tab PO QAM 09/02/16 Reported Imdur Ext Rel (Isosorbide Mononitrate) 30 Mg Tabcr 1 Tab PO QAM 09/02/16 Reported Oxybutynin Chloride 5 Mg Tab 5 Mg PO BID 05/11/15 Reported Metoprolol Tartrate 50 Mg Tab 50 Mg PO BID 05/11/15 Reported Meclizine Hcl 25 Mg Tab 25 Mg PO TID PRN 05/08/12 Reported Vitamin D3 (Cholecalciferol) 5,000 Unit Tab 5,000 Unit(Int) PO HS 05/08/12 Reported Nitrostat (Nitroglycerin) 0.4 Mg Sub 0.4 Mg UT PRN 05/08/12 Reported Plavix (Clopidogrel Bisulfate) 75 Mg Tab 75 Mg PO DAILY 05/08/12 Reported
== END 2016-09-04 15:07 | disposition home health service (06) | DRG 65 ==
LOC: EDBD 11:57 → C.EDC 12:00 → C.2E 15:45 → ENRESERV 16:11
PROVIDERS: ADMIT Family Medicine; ATTEND Family Medicine
DX: I63.411 Cerebral infarction due to embolism of right middle cerebral artery (principal); N18.4 Chronic kidney disease, stage 4 (severe); I47.1 Supraventricular tachycardia; G81.94 Hemiplegia, unspecified affecting left nondominant side; Z95.5 Presence of coronary angioplasty implant and graft; I65.02 Occlusion and stenosis of left vertebral artery; I25.10 Atherosclerotic heart disease of native coronary artery without angina pectoris; E11.21 Type 2 diabetes mellitus with diabetic nephropathy; E78.5 Hyperlipidemia, unspecified; M19.90 Unspecified osteoarthritis, unspecified site; Z87.891 Personal history of nicotine dependence; I16.0 Hypertensive urgency; I12.9 Hypertensive chronic kidney disease with stage 1 through stage 4 chronic kidney disease, or unspecified chronic kidney disease; S00.03XA Contusion of scalp, initial encounter; Y92.009 Unspecified place in unspecified non-institutional (private) residence as the place of occurrence of the external cause; W19.XXXA Unspecified fall, initial encounter

== ENCOUNTER 2016-09-17 23:58 | Emergency (ER) | payer OTHER ==
[~2016-09-17] VITALS: Ht 152.4 cm; Wt 88.0 kg
[~2016-09-17 23:58] MED LIST changes: -ACET650T92 PO; +AMLO-114 PO; -AMLO5TAB2 PO; +ATOR-26 PO; +CYAN10004 PO; +DOCU100C22 PO; +FERR1TAB13 PO; -FLNIN NAE; +ISOS30TA35 PO; -ISOS60TA PO; +ISOS60TA25 PO; -ISR/5 PO; +JNV25 PO; -LPT/40 PO; -SENNTAB23 PO
[2016-09-18 00:06] VITALS: Ht 152.4 cm; Wt 88.0 kg
[2016-09-18] MEDS ORDERED: ACETAMINOPHEN 325 MG TAB PO STA (00:20)
[2016-09-18 00:31] LABS: URINE APPEARANCE CLOUDY (CLEAR); URINE BILIRUBIN NEG (NEG); URINE COLOR YELLOW; URINE NITRITE POS (NEG); URINE SPECIFIC GRAVITY 1.015 (1.000-1.030); UROBILINOGEN NEG (NEG); ZZUR CULT IF INDIC CLEAN CATCH YES
[2016-09-18 00:32] LABS: MANUAL MICROSCOPIC REQUIRED? NO; REVIEW REQ? NO
[2016-09-18 00:47] LABS: BASO % 0.2 %; BASO ABS # 0.02 K/uL (0-0.2); COMPLETE YES; EOS % 1.2 %; HEMATOCRIT 34.4 % (37-47); IG% 0.3 %; LYMPH % 10.3 %; LYMPH ABS # 0.89 K/uL (1.2-3.4); MEAN CELL VOLUME 95.6 fL (80-100); MEAN CORPUSCULAR HGB CONC 31.4 g/dl (32-36); MEAN PLATELET VOLUME 10.9 fL (7.4-10.4); MONO % 9.9 %; NEUT % 78.1 %; PLATELET COUNT 207 K/uL (130-400); WHITE BLOOD COUNT 8.61 K/uL (4.8-10.8)
[2016-09-18 01:05] LABS: BUN/CREATININE RATIO 19.2 (10-20); CALCIUM 9.2 mg/dl (8.5-10.1); CREATININE 2.2 mg/dl (0.60-1.20); POTASSIUM 4.8 mmol/L (3.5-5.1)
[2016-09-18] MEDS ORDERED: CEFTRIAXONE SOD INJ 1 GM ADDVIAL IV STA (01:18)
[2016-09-18] MEDS ORDERED: ASPI81TA28 PO (01:32)
[2016-09-18] MEDS ORDERED: ATOR-26 PO (01:33)
[2016-09-18] MEDS ORDERED: PANT40TA PO (01:38)
--- NOTE | 2016-09-18 01:41 | DIAGNOSTIC IMAGING REPORT ---
SINGLE VIEW CHEST CLINICAL HISTORY: Fever. FINDINGS: An AP, portable, upright chest radiograph is compared to study dated 05/08/2012. The examination is degraded by portable technique and patient rotation. The cardiomediastinal silhouette is unremarkable. There is atherosclerotic calcification of the thoracic aorta. Chronic interstitial thickening is unchanged. Minimal atelectasis is seen at the left lung base. No airspace consolidation, large pleural effusion, or pneumothorax is seen. The skeletal structures are osteopenic. The bony thorax is grossly intact. IMPRESSION: No acute cardiopulmonary abnormality. Electronically signed by: Rashaad Sun M.D. 09/18/2016 1:40 AM Dictated Date/Time: 09/18/2016 1:39 AM
[2016-09-18] MEDS ORDERED: CEFD300C2 PO (01:54)
--- NOTE | 2016-09-18 02:13 | EMERGENCY ROOM VISIT NOTE ---
History Report prepared by Aubree: Williams Pedersen Under the Supervision of: Dr. Tyler Nelson M.D. First contact with patient: 00:13 Chief Complaint: NAUSEA Stated Complaint: COLD,NAUSEA,HEART PT History of Present Illness The patient is an 85 year old female who presents to the Emergency Room with complaints of constant chills starting around 1999. The patient states that she additionally has been nauseous and took some Emetrol. The patient denies any fever, vomiting, abdominal pain, chest pain, headache, joint pains, muscle aches , or trouble urinating. She additionally states that she has a cough which is from a sinus drip which has been chronic for the past few months. She denies any recent infections. The patient states that she had a stroke two weeks ago, and she is recovering. She states that she now has improved control of her right arm. She states that she is not currently on Chemotherapy, and she denies any recent tick bites. Source of History: patient Onset: 1999 Position: other (global) Quality: other (chills) Timing: constant Associated Symptoms: + cough, + nausea, No fevers, No headache, No chest pain, No vomiting, No abdominal pain, No urinary symptoms Review of Systems See HPI for pertinent positives & negatives. A total of 10 systems reviewed and were otherwise negative. Past Medical & Surgical Medical Problems: (1) CAD (coronary artery disease) (2) CKD (chronic kidney disease), stage IV (3) DM type 2 (diabetes mellitus, type 2) (4) Dyslipidemia (5) HTN (hypertension) (6) Osteoarthritis Surgical Problems: (1) H/O dilation and curettage (2) H/O oophorectomy (3) History of appendectomy (4) History of cataract surgery (5) S/P cholecystectomy Family History Cancer Social History Smoking Status: Former Smoker Alcohol Use: none Drug Use: none Marital Status: Housing Status: lives with significant other Occupation Status: retired Current/Historical Medications Scheduled Amlodipine (Norvasc), 10 MG PO DAILY Aspirin (Aspirin Ec), 162 MG PO DAILY Atorvastatin (Lipitor), 80 MG PO DAILY Cefdinir (Omnicef), 1 CAP PO BID Cholecalciferol (Vitamin D3), 5,000 UNIT(INT) PO HS Clopidogrel Bisulfate (Plavix), 75 MG PO DAILY Cyanocobalamin (Vitamin B-12 1000 Mcg), 1,000 MCG PO DAILY Docusate Sodium (Docqlace), 200 MG PO HS Ferrous Sulfate (Kp Ferrous Sulfate), 325 MG PO BID Isosorbide Mononitrate Ext Rel (Imdur Ext Rel), 30 MG PO QAM Isosorbide Mononitrate Ext Rel (Imdur Ext Rel), 60 MG PO QAM Losartan Potassium (Cozaar), 100 MG PO DAILY Meclizine Hcl (Meclizine Hcl), 25 MG PO TID PRN Metoprolol Tartrate (Metoprolol Tartrate), 50 MG PO BID Nitroglycerin (Nitrostat), 0.4 MG UT PRN Oxybutynin Chloride (Oxybutynin Chloride), 5 MG PO BID Pantoprazole (Protonix), 40 MG PO BID Sitagliptin (Januvia), 25 MG PO DAILY Allergies Coded Allergies: GAYATHRI Inhibitors (Unverified Allergy, Unknown, SWELLING, 09/18/16) Sulfa Antibiotics (Verified Allergy, Unknown, UNKNOWN, 09/18/16) Physical Exam Vital Signs Date Time Temp Pulse Resp B/P (MAP) Pulse Ox O2 Delivery O2 Flow Rate FiO2 09/18/16 01:45 38.4 71 18 156/77 94 Room Air 09/18/16 00:06 36.8 81 20 199/79 95 Room Air Physical Exam Constitutional: Vital signs reviewed. Eyes: Pupils are equal round reactive to light. Conjunctiva are noninjected. ENT: Pharynx is clear without erythema or exudate. Mucous membranes are moist. Neck supple without meningeal signs. Respiratory: Clear to auscultation bilaterally. Breath sounds are equal bilaterally. Cardiovascular: Regular rate and rhythm. No rubs or gallops. GI: Soft, nondistended and nontender. Bowel sounds are present. Musculoskeletal: No peripheral edema. No lower extremity tenderness. Integumentary: No cyanosis. Neurological: The patient is awake and alert. No focal deficits. Psychiatric: Normal affect. Medical Decision & Procedures ER Provider Diagnostic Interpretation: X-ray results as stated below per interpretation by me and the radiologist: SINGLE VIEW CHEST CLINICAL HISTORY: Fever. FINDINGS: An AP, portable, upright chest radiograph is compared to study dated 05/08/2012. The examination is degraded by portable technique and patient rotation. The cardiomediastinal silhouette is unremarkable. There is atherosclerotic calcification of the thoracic aorta. Chronic interstitial thickening is unchanged. Minimal atelectasis is seen at the left lung base. No airspace consolidation, large pleural effusion, or pneumothorax is seen. The skeletal structures are osteopenic. The bony thorax is grossly intact. IMPRESSION: No acute cardiopulmonary abnormality. Electronically signed by: Rashaad Sun M.D. 09/18/2016 1:40 AM Dictated Date/Time: 09/18/2016 1:39 AM Laboratory Results 09/18/16 00:30 Red Blood Count 3.60, Mean Corpuscular Volume 95.6, Mean Corpuscular Hemoglobin 30.0, Mean Corpuscular Hemoglobin Concent 31.4, Mean Platelet Volume 10.9, Neutrophils (%) (Auto) 78.1, Lymphocytes (%) (Auto) 10.3, Monocytes (%) (Auto) 9.9, Eosinophils (%) (Auto) 1.2, Basophils (%) (Auto) 0.2, Neutrophils # (Auto) 6.72, Lymphocytes # (Auto) 0.89, Monocytes # (Auto) 0.85, Eosinophils # (Auto) 0.10, Basophils # (Auto) 0.02 09/18/16 00:30 Test 09/18/16 00:05 09/18/16 00:30 09/18/16 00:36 Urine Color YELLOW Urine Appearance CLOUDY (CLEAR) Urine pH 5.0 (4.5-7.5) Urine Specific [place] 1.015 (1.000-1.030) Urine Protein 1+ (NEG) Urine Glucose (UA) NEG (NEG) Urine Ketones NEG (NEG) Urine Occult Blood 2+ (NEG) Urine Nitrite POS (NEG) Urine Bilirubin NEG (NEG) Urine Urobilinogen NEG (NEG) Urine Leukocyte Esterase LARGE (NEG) Urine WBC (Auto) >30 /hpf (0-5) Urine RBC (Auto) 10-30 /hpf (0-4) Urine Hyaline Casts (Auto) 0 /lpf (0-5) Urine Epithelial Cells (Auto) 10-20 /lpf (0-5) Urine Bacteria (Auto) 4+ (NEG) White Blood Count 8.61 K/uL (4.8-10.8) Red Blood Count 3.60 M/uL (4.2-5.4) Hemoglobin 10.8 g/dL (12.0-16.0) Hematocrit 34.4 % (37-47) Mean Corpuscular Volume 95.6 fL (80-100) Mean Corpuscular Hemoglobin 30.0 pg (25-34) Mean Corpuscular Hemoglobin Concent 31.4 g/dl (32-36) Platelet Count 207 K/uL (130-400) Mean Platelet Volume 10.9 fL (7.4-10.4) Neutrophils (%) (Auto) 78.1 % Lymphocytes (%) (Auto) 10.3 % Monocytes (%) (Auto) 9.9 % Eosinophils (%) (Auto) 1.2 % Basophils (%) (Auto) 0.2 % Neutrophils # (Auto) 6.72 K/uL (1.4-6.5) Lymphocytes # (Auto) 0.89 K/uL (1.2-3.4) Monocytes # (Auto) 0.85 K/uL (0.11-0.59) Eosinophils # (Auto) 0.10 K/uL (0-0.5) Basophils # (Auto) 0.02 K/uL (0-0.2) RDW Standard Deviation 45.5 fL (36.4-46.3) RDW Coefficient of Variation 13.0 % (11.5-14.5) Immature Granulocyte % (Auto) 0.3 % Immature Granulocyte # (Auto) 0.03 K/uL (0.00-0.02) Anion Gap 7.0 mmol/L (3-11) Est Creatinine Clear Calc Drug Dose 18.1 ml/min Estimated GFR () 22.8 Estimated GFR (Non- 19.6 BUN/Creatinine Ratio 19.2 (10-20) Calcium Level 9.2 mg/dl (8.5-10.1) Total Bilirubin 0.3 mg/dl (0.2-1) Direct Bilirubin 0.1 mg/dl (0-0.2) Aspartate Amino Transf (AST/SGOT) 9 U/L (15-37) Alanine Aminotransferase (ALT/SGPT) 16 U/L (12-78) Alkaline Phosphatase 76 U/L (45-117) Total Protein 7.2 gm/dl (6.4-8.2) Albumin 3.2 gm/dl (3.4-5.0) Bedside Lactic Acid Venous 1.03 mmol/L (0.90-1.70) Laboratory results as reviewed by me. Medications Administered Medications (Trade) Dose Ordered Sig/Caty Route Start Time Stop Time Status Last Admin Dose Admin Acetaminophen (Tylenol Tab) 650 mg NOW STAT PO 09/18/16 00:20 09/18/16 00:22 DC 09/18/16 01:44 650 MG Ceftriaxone Sodium (Rocephin Inj) 1 gm NOW STAT IV 09/18/16 01:18 09/18/16 01:19 DC 09/18/16 01:43 1 GM ED Course 0013: The patient was evaluated in room B7. A complete history and physical exam was performed. 0020: Tylenol Tab 650mg PO 0059: I discussed the test results, and she says that she feels better, and she prefers not to stay in the hospital. 0118: Rocephin Inj 1 gm IV 0150: I reevaluated the patient, and she does not want to be admitted. The patient appeared to have improvement of her symptoms. I discussed mauri's findings with her. She verbalized agreement of the treatment plan. She was discharged home. Medical Decision This is an 85-year-old female presents with chills and nausea. Differential diagnosis includes UTI, pneumonia, viral syndrome, sepsis, SIRS. I did perform a limited focused review of portions of the patient's old chart on the electronic medical record. 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 She was discharged with aspirin. Blood Pressure Screening: Patient was found to have an elevated blood pressure and was referred to their primary doctor for recheck and further treatment. Medication Reconciliation: I attest that I have personally reviewed the patient' s current medication list. I did evaluate the patient as noted above. I did treat the patient with Tylenol. IV access was established. I did order and personally review the patient's chest x-ray as described above. Ther eis no evidence of pneumonia. I did order and review the patient's blood work as noted in the electronic medical record. Her WBC is not elevated. Lactic acid level is not elevated. Creatinine is at baseline. I did order a UA. She has a significant UTI. I did order urine culture. I did treat the patient ceftriaxone IV. I did discuss the test results with the patient and her family. She did not wish to be hospitalized and stated she felt better and wanted to go home. I therefore discharged patient and gave her strict instructions to return for any worsening symptoms. She was given a prescription for 10 days of Omnicef. Impression Primary Impression: UTI (urinary tract infection) Additional Impression: Fever Scribe Attestation The scribe's documentation has been prepared under my direct and personally reviewed by me in its entirety. I confirm that the note above accurately reflects all work, treatment, procedures, and medical decision making performed by me. Departure Information Dispostion Home / Self-Care Prescriptions Cefdinir (OMNICEF) 300 Mg Cap 1 CAP PO BID for 10 Days, #20 CAP Prov: Tyler Nelson M.D. 09/18/16 Referrals Joce Dutta M.D. (PCP) Forms HOME CARE DOCUMENTATION FORM, IMPORTANT VISIT INFORMATION Patient Instructions My [facility], Urinary Tract Infecs Women Additional Instructions You have been examined and treated today on an emergency basis only. This is not a substitute for, or an effort to provide, complete comprehensive medical care. It is impossible to recognize and treat all injuries or illnesses in a single emergency department visit. It is therefore important that you follow up closely with your physician. Call as soon as possible for an appointment. Return for worsening symptoms or if you develop lightheadedness, weakness, confusion, vomiting, or any other concerning symptoms. Problem Qualifiers Primary Impression: UTI (urinary tract infection) Urinary tract infection type: site unspecified Hematuria presence: with hematuria Qualified Codes: N39.0 - Urinary tract infection, site not specified ; R31.9 - Hematuria, unspecified Additional Impression: Fever Fever type: unspecified Qualified Codes: R50.9 - Fever, unspecified
[2016-09-18 02:39] VITALS: BP 170/99; PULSE 85; TEMP 37.2; O2SAT 98
== END 2016-09-18 02:44 | disposition home or self-care (01) ==
LOC: C.EDB 23:59
DX: N39.0 Urinary tract infection, site not specified (principal); Z86.73 Personal history of transient ischemic attack (TIA), and cerebral infarction without residual deficits; I25.10 Atherosclerotic heart disease of native coronary artery without angina pectoris; N18.4 Chronic kidney disease, stage 4 (severe); E11.9 Type 2 diabetes mellitus without complications; I12.9 Hypertensive chronic kidney disease with stage 1 through stage 4 chronic kidney disease, or unspecified chronic kidney disease; M19.90 Unspecified osteoarthritis, unspecified site; Z90.49 Acquired absence of other specified parts of digestive tract; Z98.49 Cataract extraction status, unspecified eye; Z80.9 Family history of malignant neoplasm, unspecified; Z87.891 Personal history of nicotine dependence; Z79.82 Long term (current) use of aspirin; Z79.01 Long term (current) use of anticoagulants; Z79.899 Other long term (current) drug therapy